=== PATIENT | female | born 1980 | race Caucasian/White ===

== ENCOUNTER 2020-05-13 17:38 | Emergency (ER) | payer OTHER, SELFPAY ==
--- NOTE | ~2020-05-13 | XR_ITS ---
XR ankle RT min 3V 05/13/2020 17:57 INDICATION: Right ankle pain after fall PROCEDURE: 4 views right ankle COMPARISON: No prior studies for comparison. FINDINGS: Fracture, dislocation or subluxation is not identified. Ankle mortise intact. The soft tiss ues appear within normal limits. No foreign bodies are identified. IMPRESSION: 1: NO ACUTE BONE OR JOINT ABNORMALITY IDENTIFIED. Reviewed, dictated and finalized at location A.
[2020-05-13 18:04] VITALS: BP 140/80; PULSE 100; RESP 12; TEMP 36.6; O2SAT 96
--- NOTE | 2020-05-13 18:21 | ED.GENADULT ---
HPI - General Adult General Chief complaint: Extremity Injury, Lower Stated complaint: R ANKLE PAIN S/P FALL Time Seen by Provider: 05/13/20 18:13 Source: patient Mode of arrival: ambulatory Limitations: no limitations History of Present Illness HPI narrative: Patient is a 40-year-old female who presents with right ankle injury that occurred after rolling the ankle just earlier today patient notes aching pain with difficulty bearing weight denies other injuries or complaints has not taken anything for her symptoms presents per private vehicle does not appear to be uncomfortable Related Data Allergies Allergy/AdvReac Type Severity Reaction Status Date / Time No Known Allergies Allergy Unknown Unverified 07/20/11 18:19 Review of Systems Review of Systems: All systems reviewed & are unremarkable except as noted in HPI and below PMFSH Past Medical History Medical History (Updated 05/13/20 @ 18:23 by Manuel Mauricio PA-C) Anxiety Depression Social History Social History Smoking status: Never smoker Second hand tobacco smoke exposure: No Alcohol intake: current Exam Narrative: Exam Narrative: GENERAL: Well-appearing, well-nourished, and in no acute distress. HEAD: Normocephalic, atraumatic. EYES: PERRLA and EOMI. ENT: Nares clear, no rhinorrhea or epistaxis. Mucous membranes moist. EXTREMITIES: Swelling and tenderness of the right ankle joint laterally SKIN: Warm, dry, no rash. NEURO: No focal deficits. Alert and oriented x3. Neurovascularly intact. Capillary refill less than 2 seconds PSYCH: Normal mood and affect. Course Course Emergency Course: Patient in the room aware of case findings treatment plan and diagnosis Vital Signs Vital signs: Vital Signs Temperature 97.8 F 05/13/20 18:04 Pulse Rate 100 05/13/20 18:04 Respiratory Rate 12 05/13/20 18:04 Blood Pressure 140/80 05/13/20 18:04 Pulse Oximetry 96 05/13/20 18:04 Temperature 97.8 F 05/13/20 18:04 Pulse Rate 100 05/13/20 18:04 Respiratory Rate 12 05/13/20 18:04 Blood Pressure 140/80 05/13/20 18:04 Pulse Oximetry 96 05/13/20 18:04 Medical Decision Making MDM Narrative Medical decision making narrative: Patients injury or pain is consistent with musculoskeletal etiology. No signs of neurological or vascular compromise on exam. Compartments and tisues are soft without signs of compartment syndrome. Pain is felt appropriate for further evaluation on an outpatient basis. Vital Signs Vital Signs: Vital Signs Temperature 97.8 F 05/13/20 18:04 Pulse Rate 100 05/13/20 18:04 Respiratory Rate 12 05/13/20 18:04 Blood Pressure 140/80 05/13/20 18:04 Pulse Oximetry 96 05/13/20 18:04 Temperature 97.8 F 05/13/20 18:04 Pulse Rate 100 05/13/20 18:04 Respiratory Rate 12 05/13/20 18:04 Blood Pressure 140/80 05/13/20 18:04 Pulse Oximetry 96 05/13/20 18:04 Discharge Plan Discharge Clinical Impression: Ankle sprain and strain Patient Disposition: Home, Self-Care Condition: Stable Instructions: Antibiotic Form, Ankle Strain (ED) Additional Instructions: Wear Didier wrap and use crutches with limited weight on the affected leg until able to bear weight without pain. Ice and elevate extremity. Pain medication as needed and directed. Follow up with your doctor for further care in the next 7 days. Return if symptoms worsen or concerns Follow-up/Referrals: Devi Collins MD [Primary Care Provider] - Stand Alone Forms: Work/School Release IP
== END 2020-05-13 18:49 | disposition home or self-care (01) ==
PROVIDERS: Emergency Provider Emergency Medicine; PCP Family Medicine
DX: S93.401A Sprain of unspecified ligament of right ankle, initial encounter (principal); S96.911A Strain of unspecified muscle and tendon at ankle and foot level, right foot, initial encounter; X50.1XXA Overexertion from prolonged static or awkward postures, initial encounter
CPT/HCPCS: 73610; 99283

== ENCOUNTER 2021-04-16 15:52 | Outpatient (CLI) | payer OTHER, SELFPAY ==
[2021-04-16 16:12] LABS: Hemoglobin 11.4 g/dL (12.0-15.0); Mean Corpuscular HGB Conc 32.6 g/dl (32-36); Mean Corpuscular Hemoglobin 29.5 pg (26-34); Mean Corpuscular Volume 90.7 fl (80-100); Mean Platelet Volume 11.4 fl (7.4-10.4); Platelet Count Result 217 k/mm3 (150-375); Red Blood Count 3.86 M/mm3 (4.2-5.4); Red Cell Distribution Width 12.2 % (11.5-14.5); White Blood Count 7.6 K/mm3 (4.5-10.0)
[2021-04-16 18:32] LABS: Free T4 Free Thyroxine 1.14 ng/mL (0.78-2.19)
[2021-04-16 19:03] LABS: Alanine Aminotransferase 12 U/L (4-35); Albumin Level 4.5 g/dL (3.5-5.1); Alkaline Phosphatase 54 U/L (38-126); Anion Gap 10 mmol/L (8-16); Aspartate Amino Transferase 16 U/L (14-36); Bilirubin,Total 0.3 mg/dL (0.2-1.3); Blood Urea Nitrogen 9 mg/dL (7-17); Calcium 9.1 mg/dL (8.4-10.2); Carbon Dioxide 27 mmol/L (22-30); Chloride 103 mmol/L (98-107); Estimated Glomerular Filt Rate > 60; Glucose 84 mg/dL (65-110); Potassium 3.6 mmol/L (3.4-5.0); Sodium 140 mmol/L (137-145)
[2021-04-20 16:31] LABS: Vitamin D 1,25 (OH)2 Total 35 pg/mL (18-72); Vitamin D2 1,25 (OH)2 <8 pg/mL; Vitamin D3 1,25 (OH)2 35 pg/mL
== END 2021-04-16 15:53 | disposition home or self-care (01) ==
PROVIDERS: PCP Family Medicine; Visit Provider Physician Assistant
DX: R53.83 Other fatigue (principal)
CPT/HCPCS: 36415; 80053; 82607; 82652; 84439; 84443; 85027

== ENCOUNTER → 2021-04-25 12:09 | Outpatient (CLI) | payer OTHER, SELFPAY ==
--- NOTE | ~2021-04-25 | MM_ITS ---
EXAMINATION: MM screening bill BI w john HISTORY: Screening TECHNIQUE: Craniocaudal and mediolateral oblique 3-D tomosynthesis images were obtained and synthetic 2-D images were generated. CAD analysis was submitted and interpreted. COMPARISON: No prior mammogram is available for comparison at this institution. BREAST PARENCHYMAL COMPOSITION: There are scattered areas of fibroglandular density. FINDINGS: There are bilateral breast asymmetries in the upper outer quadrant of both breasts. There a re no suspicious calcifications or discrete masses. IMPRESSION: 1. Bilateral breast asymmetries. 2. Additional mammographic views and possible breast ultrasound are recommended. BI-RADS Category 0: Incomplete: Needs additional imaging evaluation. Reviewed, dictated and finalized at location A. IMPRESSION: 1. Bilateral breast asymmetries. 2. Additional mammographic views and possible breast ultrasound are recommended . BI-RADS Category 0: Incomplete: Needs additional imaging evaluation.
== END ==
PROVIDERS: Visit Provider Obstetrics & Gynecology
DX: Z12.31 Encounter for screening mammogram for malignant neoplasm of breast (principal); R92.8 Other abnormal and inconclusive findings on diagnostic imaging of breast
CPT/HCPCS: 77063; 77067

== ENCOUNTER → 2021-05-29 07:44 | Outpatient (CLI) | payer OTHER, SELFPAY ==
--- NOTE | ~2021-05-29 | MMUS_ITS ---
EXAMINATION: MM diagnostic bill BI w john, US breast RT limited HISTORY: Bilateral breast asymmetries on baseline screening mammogram TECHNIQUE: Additional 3-D tomosynthesis images of the breasts were performed and synthetic 2-D images were generated. CAD analysis was submitted and interpreted. High resolution limited right breast ult rasound was performed. COMPARISON: 04/25/2021 BREAST PARENCHYMAL COMPOSITION: There are scattered areas of fibroglandular density. FINDINGS: MAMMOGRAPHIC FINDINGS: Left breast: There is no evidence of suspicious mass, calcification, or architectural distortion to suggest malignancy. Right breast: There is subtle architectural distortion with possible mass in the middle third of the outer breast at the 9:00 location 6 cm from the nipple. A 5 mm oval, circumscribed, equal density mas s is present at the 9:00 location 8 cm from the nipple. ULTRASOUND: There is a 7 mm x 4 mm oval, circumscribed, parallel, hypoechoic mass at the 9:00 location 6 cm from the nipple with no posterior features or internal vascularity. There is a 5 mm oval, circumscribed, p arallel, hypoechoic mass with posterior acoustic enhancement and no internal vascularity at the 8:00 location 8 cm from the nipple. A 6 mm x 2 mm mass with similar sonographic features is present at the 6:00 location 5 cm from the nipple. IMPRESSION: 1. Indeterminate right breast mass at the 9:00 location 6 cm from the nipple. 2. Ultrasound-guided biopsy is recommended. BI-RADS category 4, suspicious findings. Reviewed, dictated and finalized at location A. TOP SUPPORT SPECIALIST IMPRESSION: 1. Indeterminate right breast mass at the 9:00 location 6 cm from the nipple. 2. Ultrasound-guided biopsy is recommended. BI-RADS category 4, suspicious findings.
== END ==
PROVIDERS: Visit Provider Obstetrics & Gynecology
DX: R92.8 Other abnormal and inconclusive findings on diagnostic imaging of breast (principal)
CPT/HCPCS: 76642; 77062; 77066; G0279

== ENCOUNTER → 2021-06-05 07:43 | Outpatient (CLI) | payer OTHER, SELFPAY ==
--- NOTE | ~2021-06-05 | US_ITS ---
EXAMINATION: US abdomen limited DATE: 06/05/2021 08:13 INDICATION: Nausea. TECHNIQUE: Multiple grayscale and Doppler ultrasound images of the abdomen were obtained. COMPARISON: None FINDINGS: The visualized portions of the head, body, and tail of the pancreas are normal. The liver i s normal without focal lesion. There is normal flow in main portal vein. The gallbladder is normal in size and contains gallstones. No gallbladder wall thickening or sonographic Hale sign. The common duct is normal and measures 4 mm. IMPRESSION: 1. Cholelithiasis. No evidence of acute cholecystitis. Reviewed, dictated and finalized at location B. 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
== END ==
PROVIDERS: PCP Family Medicine; Visit Provider Family Medicine
DX: R11.0 Nausea (principal); K80.20 Calculus of gallbladder without cholecystitis without obstruction
CPT/HCPCS: 76705

== ENCOUNTER 2021-06-05 08:24 | Outpatient (CLI) | payer OTHER, SELFPAY ==
[2021-06-05 08:51] LABS: Hematocrit 40.4 % (37.0-47.0); Hemoglobin 13.4 g/dL (12.0-15.0); Mean Corpuscular HGB Conc 33.2 g/dl (32-36); Mean Corpuscular Hemoglobin 30.1 pg (26-34); Mean Corpuscular Volume 90.8 fl (80-100); Mean Platelet Volume 10.6 fl (7.4-10.4); Platelet Count Result 198 k/mm3 (150-375); Red Blood Count 4.45 M/mm3 (4.2-5.4); Red Cell Distribution Width 12.9 % (11.5-14.5); White Blood Count 7.8 K/mm3 (4.5-10.0)
[2021-06-05 10:43] LABS: Iron 62 ug/dL (37-170)
[2021-06-05 10:52] LABS: Percent Iron Saturation 18 % (20-50)
[2021-06-05 11:09] LABS: Alanine Aminotransferase 18 U/L (4-35); Albumin Level 4.6 g/dL (3.5-5.1); Alkaline Phosphatase 55 U/L (38-126); Anion Gap 10 mmol/L (8-16); Aspartate Amino Transferase 19 U/L (14-36); Bilirubin,Total 0.4 mg/dL (0.2-1.3); Blood Urea Nitrogen 15 mg/dL (7-17); Calcium 9.1 mg/dL (8.4-10.2); Carbon Dioxide 24 mmol/L (22-30); Chloride 102 mmol/L (98-107); Cholesterol 193 mg/dL (0-200); Estimated Glomerular Filt Rate > 60; Glucose 107 mg/dL (65-110); HDL Direct 40 mg/dL; Lipase 93 U/L (23-300); Potassium 4.4 mmol/L (3.4-5.0); Sodium 136 mmol/L (137-145); Triglycerides 213 mg/dL (<150)
[2021-06-05 11:21] LABS: LDL Cholesterol Direct 122 mg/dL
[2021-06-05 12:15] LABS: Folic Acid 6.6 ng/mL (2.76->20)
== END 2021-06-05 08:25 | disposition home or self-care (01) ==
PROVIDERS: PCP Family Medicine; Visit Provider Family Medicine
DX: D64.9 Anemia, unspecified (principal); R11.0 Nausea; E78.2 Mixed hyperlipidemia; R63.4 Abnormal weight loss; Z00.00 Encounter for general adult medical examination without abnormal findings
CPT/HCPCS: 36415; 80053; 80061; 82607; 82728; 82746; 83540; 83550; 83690; 84443; 85027

== ENCOUNTER 2021-06-11 08:50 | Outpatient (CLI) | payer OTHER, SELFPAY ==
--- NOTE | ~2021-06-11 | US_ITS ---
Consultation US DATE: 06/11/2021 09:39 INDICATION: The patient presented for ultrasound-guided biopsy of 9:00 indeterminate lesion 6 cm from nipple reported on 05/29/2021 right Limited breast ultrasound examination TECHNIQUE: Real-time imaging was performed by the technologist and by myself the radiologist in the a angie of interest at 9:00 COMPARISON: 05/29/2021 Limited right breast ultrasound examination FINDINGS: Previous reported 7 x 4 mm oval circumscribed parallel hypoechoic mass at 9:00 6 cm from th e nipple is no longer detected. IMPRESSION: BI-RADS Category 2: Benign Recommendation: Routine mammographic screening Reviewed, dictated and finalized at Location A. Reviewed, dictated and finalized at location A. LY SERVICE COUNSELOR
== END 2021-06-11 08:51 | disposition home or self-care (01) ==
LOC: ANHIMG 08:52
PROVIDERS: PCP Family Medicine; Visit Provider Surgery
DX: R92.8 Other abnormal and inconclusive findings on diagnostic imaging of breast (principal)
CPT/HCPCS: 99199

== ENCOUNTER → 2021-11-23 08:03 | Outpatient (CLI) | payer OTHER, SELFPAY ==
--- NOTE | ~2021-11-23 | MM_ITS ---
EXAMINATION: MM diagnostic bill RT w john HISTORY: Follow-up right breast mass TECHNIQUE: Additional 3-D tomosynthesis images of the right breast were performed and synthetic 2-D i mages were generated. CAD analysis was submitted and interpreted. High resolution Limited right breas t ultrasound was performed. COMPARISON: 05/29/2021 and 04/25/2021 BREAST PARENCHYMAL COMPOSITION: Breast composed of scattered areas of fibroglandular density FINDINGS: MAMMOGRAPHIC FINDINGS: There is subtle focal asymmetry in the lower outer quadrant of the right breast. No discrete mass. No suspicious calcifications. ULTRASOUND: Limited right breast ultrasound: At 9:00, 6 cm from the nipple there is a 4 mm cyst. At 8:00, 8 cm from the nipple, there is an irregular shaped antiparallel hypoechoic mass with irregul ar margins measuring 5 x 3 x 4 mm. No internal vascularity. No significant posterior features. At 6:0 0, 5 cm from the nipple there is a 5 mm cyst. IMPRESSION: 1. New right breast mass located at 8:00, 8 cm from the nipple with subtle associated focal asymmetry by mammography. 2. Ultrasound-guided right breast biopsy recommended. BI-RADS category 4, suspicious findings. Reviewed, dictated and finalized at location A. IMPRESSION: 1. New right breast mass located at 8:00, 8 cm from the nipple with subtle asso ciated focal asymmetry by mammography. 2. Ultrasound-guided right breast biopsy recommended. BI-RADS category 4, suspicious findings.
--- NOTE | ~2021-11-23 | US_ITS ---
Please see diagnostic mammogram report dated 11/23/2021 for details. Reviewed, dictated and finalized at location A.
== END ==
PROVIDERS: PCP Family Medicine; Referring Provider Surgery; Visit Provider Obstetrics & Gynecology Gynecology
DX: R92.8 Other abnormal and inconclusive findings on diagnostic imaging of breast (principal); N63.15 Unspecified lump in the right breast, overlapping quadrants
CPT/HCPCS: 76642; 77061; 77065; G0279

== ENCOUNTER 2021-12-19 09:12 | Outpatient (CLI) | payer OTHER, SELFPAY ==
--- NOTE | ~2021-12-19 | MMUS_ITS ---
EXAMINATION: US breast biopsy RT w image, MM post biopsy invasive RT DATE: 12/19/2021 11:37 (accession [id number]), 12/19/2021 11:34 (accession [id number]) INDICATION: Indeterminate mass in the lower outer quadrant of the right breast. Ultrasound-guided cor e biopsy is requested to evaluate for malignancy. TECHNIQUE AND FINDINGS: The risks and potential benefits of the procedure were discussed with the patient including bleeding, infection, and nondiagnostic specimen. A time out was performed. The skin of the right breast was pr epared and draped in usual sterile fashion. 1% lidocaine was used for superficial anesthesia. 1% lido valentina with epinephrine was used for deep anesthesia. A vacuum-assisted biopsy gun needle was advanced through to the outer edge of the region of interest from an inferior approach utilizing sonographic guidance. A total of three tissue core samples were o btained through the lesion. A tissue marker clip was then placed at the biopsy site. Hemostasis was a chieved. A sterile bandage was applied. The patient tolerated procedure well and there was no evidence of immediate complication. The patient was given verbal instructions to return to the Emergency Department in the event of severe breast pa in or rapid breast enlargement. A two view right breast mammogram was obtained to document tissue mar ker clip placement. Initial mammographic images did not demonstrate a biopsy marker. The patient was brought back to the biopsy suite and a second marker was placed at the biopsy site. IMPRESSION: 1. Successful ultrasound-guided vacuum-assisted biopsy of right breast mass with tissue marker placem ent. Reviewed, dictated and finalized at location A. IMPRESSION: 1. Successful ultrasound-guided vacuum-assisted biopsy of right breast mass wit h tissue marker placement.
== END 2021-12-19 09:13 | disposition home or self-care (01) ==
PROVIDERS: PCP Family Medicine; Visit Provider Surgery
DX: N63.13 Unspecified lump in the right breast, lower outer quadrant (principal)
CPT/HCPCS: 19083; 88305; A4648

== ENCOUNTER 2022-06-27 13:24 | Outpatient (CLI) | payer OTHER, SELFPAY ==
--- NOTE | ~2022-06-27 | MM_ITS ---
EXAMINATION: MM diagnostic bill BI w john HISTORY: Follow-up recent benign biopsy. TECHNIQUE: Additional 3-D tomosynthesis images of the right breast were performed and synthetic 2-D i mages were generated. CAD analysis was submitted and interpreted. COMPARISON: Comparison to multiple prior studies sequentially, with oldest reviewed study dated 04/13. BREAST PARENCHYMAL COMPOSITION: BREAST PARENCHYMAL COMPOSITION: There are scattered areas of fibroglandular density. FINDINGS: The right breast is stable. No new masses, calcifications or architectural distortion are i dentified. There is a tissue marker in the lower outer quadrant of the right breast. IMPRESSION: 1. No mammographic evidence for malignancy in the right breast. 2. Routine yearly screening mammogram and regular clinical breast examination are recommended. BI-RADS Category 2: Benign finding(s). Reviewed, dictated and finalized at location B. ECTOR PRECISION ASSEMBLY IMPRESSION: 1. No mammographic evidence for malignancy in the right breast. 2. Routine yearly screening mammogram and regular clinical breast examination a re recommended. BI-RADS Category 2: Benign finding(s).
== END 2022-06-27 13:25 | disposition home or self-care (01) ==
PROVIDERS: PCP Family Medicine; Visit Provider Surgery
DX: R92.8 Other abnormal and inconclusive findings on diagnostic imaging of breast (principal)
CPT/HCPCS: 77062; 77066; G0279

== ENCOUNTER 2023-05-02 07:27 | Outpatient (CLI) | payer OTHER, SELFPAY ==
[2023-05-02 08:22] LABS: Hematocrit 37.8 % (37.0-47.0); Hemoglobin 12.1 g/dL (12.0-15.0); Mean Corpuscular Volume 87.5 fl (80-100); Mean Platelet Volume 10.7 fl (7.4-10.4); Platelet Count Result 211 k/mm3 (150-375); Red Blood Count 4.32 M/mm3 (4.2-5.4); Red Cell Distribution Width 13.2 % (11.5-14.5); White Blood Count 6.1 K/mm3 (4.5-10.0)
[2023-05-02 08:34] LABS: Alanine Aminotransferase 21 U/L (6-35); Albumin Level 4.4 g/dL (3.5-5.1); Alkaline Phosphatase 67 U/L (38-126); Anion Gap 7 mmol/L (8-16); Aspartate Amino Transferase 19 U/L (14-36); Bilirubin,Total 0.5 mg/dL (0.2-1.3); Blood Urea Nitrogen 14 mg/dL (7-17); Calcium 8.4 mg/dL (8.4-10.2); Carbon Dioxide 24 mmol/L (22-30); Chloride 105 mmol/L (98-107); Cholesterol 169 mg/dL (0-200); Estimated Glomerular Filt Rate > 60; Glucose 95 mg/dL (65-110); HDL Direct 36 mg/dL; Potassium 4.2 mmol/L (3.4-5.0); Sodium 136 mmol/L (137-145); Triglycerides 122 mg/dL (<150)
[2023-05-02 08:45] LABS: LDL Cholesterol Direct 99 mg/dL
[2023-05-02 09:00] LABS: Free T4 Free Thyroxine 1.09 ng/mL (0.78-2.19); Vitamin D 25 Hydroxy 31.7 ng/mL
== END 2023-05-02 07:28 | disposition home or self-care (01) ==
LOC: ANHLAB 07:28
PROVIDERS: PCP Family Medicine; Visit Provider Advanced Practice Midwife
DX: Z01.419 Encounter for gynecological examination (general) (routine) without abnormal findings (principal); E66.09 Other obesity due to excess calories
CPT/HCPCS: 36415; 80053; 80061; 82306; 82607; 83036; 84439; 84443; 85027

== ENCOUNTER 2023-08-28 07:17 | Outpatient (CLI) | payer OTHER, SELFPAY ==
--- NOTE | ~2023-08-28 | MM_ITS ---
EXAMINATION: MM screening bill BI w john HISTORY: Screening mammogram TECHNIQUE: Craniocaudal and mediolateral oblique 3-D tomosynthesis images were obtained and synthetic 2-D images were generated. CAD analysis was submitted and interpreted. COMPARISON: 06/27/2022, 11/23/2021, 05/29/2021, 04/25/2021 BREAST PARENCHYMAL COMPOSITION: There are scattered areas of fibroglandular density. FINDINGS: No suspicious mass, calcification, or architectural distortion are identified in either daryl ast to suggest malignancy. There has been no suspicious interval change. IMPRESSION: 1. No mammographic evidence of malignancy. 2. Recommend routine screening mammography in one year. BI-RADS Category 1: Negative Reviewed, dictated and finalized at location A. UNICATIONS SYSTEMS ENGINEER
== END 2023-08-28 07:18 | disposition home or self-care (01) ==
PROVIDERS: PCP Family Medicine; Visit Provider Obstetrics & Gynecology Gynecology
DX: Z12.31 Encounter for screening mammogram for malignant neoplasm of breast (principal)
CPT/HCPCS: 77063; 77067

== ENCOUNTER 2023-09-03 17:44 | Emergency (ER) | payer OTHER, SELFPAY ==
[2023-09-03 17:56] VITALS: BP 134/89; PULSE 82; RESP 16; TEMP 37.1; O2SAT 97
--- NOTE | 2023-09-03 18:07 | ED.URI ---
HPI - URI/Sore Throat General Chief Complaint: Upper Respiratory Infection Stated Complaint: TIRED/COUGH/SORE THROAT/HEADACHE/FEVER/NAUSEA Time Seen by Provider: 09/03/23 18:07 Source: patient Mode of arrival: ambulatory Limitations: no limitations History of Present Illness HPI Narrative: 43-year-old female presents with complaint of sore throat, nasal congestion, cough, fatigue, body aches, chills, nausea and fever for 3 days. denies chest pain and shortness of breath. Taking ibuprofen to treat symptoms. Reports that she has missed 2 days of work, laying in bed all day. All systems reviewed and negative except as noted above. Related Data Home Medications Medication Instructions Recorded Confirmed buspirone 30 mg tablet 30 mg PO BID 05/14/21 09/03/23 clonazepam 1 mg tablet (Klonopin) 1 mg PO BID 05/14/21 09/03/23 bupropion HCl 300 mg 24 hr tablet, 450 mg PO QAM 07/05/21 09/03/23 extended release (Wellbutrin XL) cariprazine 1.5 mg capsule 1.5 mg PO DAILY 07/05/21 09/03/23 (Vraylar) Allergies Allergy/AdvReac Type Severity Reaction Status Date / Time No Known Allergies Allergy Unknown Verified 09/03/23 18:02 Review of Systems Review of Systems: CONSTITUTIONAL: Reports fever, chills, or sweats. EYES: Denies visual changes, redness, or discharge. ENT: Reports rhinorrhea, congestion, sore throat. Denies otalgia. CARDIOVASCULAR: Denies chest pain, palpitations, or edema. RESPIRATORY: Reports cough. Denies dyspnea. GASTROINTESTINAL: Denies abdominal pain, nausea, vomiting, or diarrhea. GENITOURINARY: Denies dysuria or hematuria. SKIN: Denies rash or itching. MUSCULOSKELETAL: Denies back pain, joint pain, or myalgia. NEUROLOGIC: Denies headache, numbness, or weakness. PSYCHIATRIC: Denies anxiety or depression. All other systems reviewed are negative, except as documented in HPI. [facility] Past Medical History Medical History Anxiety Bipolar disorder Depression Surgical History Surgical History Hx of tonsillectomy S/P D&C (status post dilation and curettage) Family History Family History (Updated 07/04/22 @ 12:44 by Maik Rodas MD) Father Diabetes mellitus Mother Hypertension Grandparent Diabetes mellitus Cerebrovascular accident Hypertension Carcinoma of colon Other , Unknown , Breast cancer unknown age of onset, in one great-grandmother. 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 There is no relevant family history pertinent to the presenting complaint. Exam Narrative: GENERAL: This is a well-nourished, well-developed patient, patient ill-appearing but in no acute distress HEAD: normocephalic, atraumatic. EYES: PERRL. Sclera clear/white. Vision is grossly intact. EARS: External ears normal, auditory canals clear and without drainage, TMs normal without perforation. Hearing grossly intact. NOSE: External nose normal with no obvious nasal discharge, nares without redness, no rhinorrhea. THROAT: Mucous membranes moist, mild erythema to posterior pharynx without swelling or exudates. NECK: Neck supple, non-tender without lymphadenopathy, masses or thyromegaly. CARDIOVASCULAR: Regular rate and rhythm without m
== END 2023-09-03 18:19 | disposition home or self-care (01) ==
PROVIDERS: Emergency Provider Nurse Practitioner Family; PCP Family Medicine
DX: J10.1 Influenza due to other identified influenza virus with other respiratory manifestations (principal); Z20.822 Contact with and (suspected) exposure to COVID-19; F17.210 Nicotine dependence, cigarettes, uncomplicated; F41.9 Anxiety disorder, unspecified; F32.A Depression, unspecified
CPT/HCPCS: 87081; 87426; 87804; 87880; 99213; G0463

== ENCOUNTER 2024-04-09 11:51 | Emergency (ER) | payer OTHER, SELFPAY ==
--- NOTE | ~2024-04-09 | CT_ITS ---
EXAMINATION: CT chest abdomen pelvis w con DATE: 04/09/2024 20:11 INDICATION: RUQ pain . TECHNIQUE: Computed tomography (CT) of the chest, abdomen, and pelvis was performed with 100 mL Omnip aque-350 intravenous contrast. Automated exposure control and iterative reconstruction technique were employed. The dose-length product was 1223.67 mGy-cm. COMPARISON: None FINDINGS: CHEST: Thoracic aorta: No significant dilation. No dissection. Lung parenchyma and airways: Lungs and airways are clear. Thoracic inlet, axillae and chest wall: No thyroid or soft tissue mass. No axillary lymphadenopathy. Mediastinum: No mass or lymphadenopathy. Heart and pericardium: Normal heart size. No pericardial effusion. Coronary artery calcifications: Absent. Pleura: No effusion or mass. Thoracic bones: No acute osseous finding in the chest. ABDOMEN/PELVIS: Liver: Normal. Biliary/Gallbladder: Distended gallbladder. Mild gallbladder wall thickening. Gallstone in the gallbl adder neck. No bile duct dilation. Pancreas: No mass or duct dilation. Spleen: Normal. Adrenals:No mass. Kidneys: No suspicious mass, obstructing stone, or hydronephrosis. Subcentimeter left midpole hypoden sity, too small to characterize but likely represents a cyst. GI tract: Mild distal esophageal and gastric wall edema. No small or large bowel dilation. Normal dasia endix. Mesentery/Peritoneum: No ascites, mass, or free air. Retroperitoneum: No mass Pelvis: Normal urinary bladder. Normal uterus and bilateral ovaries. Simple appearing 2.1 cm right ov madeleine cyst. Soft Tissues: Soft tissues and body wall unremarkable. Abdominopelvic bones: No acute osseous finding in the abdomen/pelvis. IMPRESSION: Mild esophagitis/gastritis. Gallbladder hydrops with gallbladder wall thickening and cholelithiasis, which may represent acute ch olecystitis in the appropriate clinical context. Reviewed, dictated and finalized at location K. IMPRESSION: Mild esophagitis/gastritis. Gallbladder hydrops with gallbladder wall thickening and cholelithiasis, which may represent acute cholecystitis in the appropriate clinical context.
[2024-04-09 12:25] VITALS: BP 159/97; PULSE 59; RESP 16; TEMP 36.6; O2SAT 98
--- NOTE | 2024-04-09 12:51 | ECG_ITS ---
Test Date: 2024-04-09 13:08:42 Measurements Intervals [place] Rate: 54 P: 76 CT: 163 QRS: 10 QRSD: 89 T: 46 QT: 401 QTc: 381 Interpretive Statements SINUS BRADYCARDIA DELAYED PRECORDIAL R/S TRANSITION BORDERLINE ST-T WAVE ABNORMALITY- ANT/INF LEADS BASELINE ARTIFACT- I, II, AVR, AVL, AVF BORDERLINE ECG No previous ECG available for comparison Electronically Signed On 04-09-2024 13:29:16 CDT by Romero Riley D.O.
--- NOTE | 2024-04-09 18:06 | ED.ABDPAIN ---
HPI - Abdominal Pain General Chief Complaint: Abdominal Pain <Liliane Barnard APRN - Last Filed: 04/09/24 18:12> Stated Complaint: abd pain <Lilianemitzy Barnard APRN - Last Filed: 04/09/24 18:12> Time Seen by Provider: 04/09/24 17:50 <Liliane Barnard APRN - Last Filed: 04/09/24 18:12> Focused HPI: Patient is a 43-year-old female who presents to the ER with complaints right upper quadrant abdominal pain that started 2 weeks ago. She reports she has a history of bipolar disorder, anxiety, and GERD. Patient reports she has been experiencing anorexia since her pain started, as this causes pain to increase. She denies any history of cholecystitis but reports that most of her family no longer has a gallbladder. Patient was also endorses right upper back pain. She denies any shortness of breath, other signs of illness, or mid-chest pain. Patient reports her last bowel movement was this morning. GENERAL: Well-appearing, well-nourished, and in no acute distress. HEAD: Normocephalic, atraumatic. CHEST: Clear to auscultation. ?No respiratory distress. HEART: Bradycardia (pt takes Propranolol for anxiety) and regular rhythm.? ABDOMEN: Pt is very tender in her RUQ with palpation. Normal BS NEURO: ?Alert and oriented x3. Patient screened in triage and initial orders placed.? ?Additional care and disposition to be based upon?diagnostic testing and treatment. <Liliane Barnard APRN - Last Filed: 04/09/24 18:12> History of Present Illness HPI narrative: Agree with the HPI <Grant Finnegan MD - Last Filed: 04/09/24 21:15> Related Data Home Medications: Home Medications Medication Instructions Recorded Confirmed buspirone 30 mg tablet 30 mg PO BID 05/14/21 09/17/23 clonazepam 1 mg tablet (Klonopin) 1 mg PO BID 05/14/21 09/17/23 bupropion HCl 300 mg 24 hr tablet, 450 mg PO QAM 07/05/21 09/17/23 extended release (Wellbutrin XL) cariprazine 1.5 mg capsule 1.5 mg PO DAILY 07/05/21 09/17/23 (Vraylar) <Liliane Barnard APRN - Last Filed: 04/09/24 18:12> Allergies/Adverse Reactions: Allergies Allergy/AdvReac Type Severity Reaction Status Date / Time No Known Allergies Allergy Unknown Verified 09/17/23 14:58 <Liliane Barnard APRN - Last Filed: 04/09/24 18:12> Review of Systems Review of Systems: All systems reviewed & are unremarkable except as noted in HPI and below <Grant Finnegan MD - Last Filed: 04/09/24 21:15> [facility] Past Medical History Medical History: Medical History Anxiety Bipolar disorder Depression <Liliane Barnard APRN - Last Filed: 04/09/24 18:12> Surgical History Surgical History: Surgical History Hx of tonsillectomy S/P D&C (status post dilation and curettage) <Liliane Barnard APRN - Last Filed: 04/09/24 18:12> Family History Family History: Family History Father Diabetes mellitus Mother Hypertension Grandparent Diabetes mellitus Cerebrovascular accident Hypertension Carcinoma of colon Other , Unknown , Breast cancer unknown age of onset, in one great-grandmother. 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
[2024-04-09 18:11] LABS: Add Urine Microscopic? YES; Appearance Urine Clear (Clear); Bacteria Urine 1+ /hpf; Bilirubin Urine Negative (Negative); Blood Urine Negative (Negative); Color Urine Yellow (Yellow); Glucose Urine UA Negative (Negative); Ketones Urine Negative (Negative); Leukocyte Esterase Ur Trace LEU/UL (Negative); Nitrate Urine Negative (Negative); Non Pathogenic Casts 0-2; Protein Urine Negative (Negative); RBC Urine 0-2 /hpf (0-2); Specific Grav Ur 1.012 (1.001-1.035); Squamous Epithelial Cell Urine Few /hpf (Few); WBC Urine 0-5 /hpf (0-3); pH Urine 6.5 (5.0-9.0)
[2024-04-09] MEDS: SODIUM CHLORIDE 0.9% IV 1,000 ML 999 ML IV CONT (18:59)
[2024-04-09] MEDS: HYDROcodone/acetaminophen (*CRX) 5-325 MG TABLET 1 TAB PO (18:59)
[2024-04-09] MEDS: FAMOTIDINE 20 MG/2 ML VIAL IV PUSH (19:02)
[2024-04-09 19:10] VITALS: BP 152/91; PULSE 60; RESP 14; TEMP 36.9; O2SAT 100
[2024-04-09] MEDS: PANTOPRAZOLE SODIUM IV 40 MG VIAL IV PUSH (19:14)
[2024-04-09 19:15] LABS: Basophils Absolute Auto 0.1 K/mm3 (0.0-0.1); Basophils Percent Auto 0.7 % (0.2-1.2); Eosinophils Absolute Auto 0.3 K/mm3 (0-0.3); Eosinophils Percent Auto 3.7 % (0-4.4); Hematocrit 37.6 % (37.0-47.0); Hemoglobin 12.1 g/dL (12.0-15.0); Immature Granulocyte Absolute 0.05 K/mm3 (0.00-0.031); Immature Granulocyte Percent A 0.6 % (0-0.5); Lymphocytes Absolute Auto 1.92 K/mm3 (0.9-3.2); Mean Corpuscular HGB Conc 32.2 g/dl (32-36); Mean Corpuscular Hemoglobin 26.7 pg (26-34); Monocytes Absolute Auto 0.7 K/mm3 (0.1-0.6); Monocytes Percent Auto 8.1 % (2.6-8.5); Neutrophils Absolute Auto 5.7 K/mm3 (1.3-6.7); Neutrophils Percent Auto 64.9 % (45.5-73.1); Platelet Count Result 250 k/mm3 (150-375); Red Blood Count 4.53 M/mm3 (4.2-5.4); Red Cell Distribution Width 14.1 % (11.5-14.5); White Blood Count 8.7 K/mm3 (4.5-10.0)
[2024-04-09 19:26] LABS: Prothrombin Time 13.2 Seconds (11.1-14.7)
[2024-04-09 19:27] LABS: Partial Thromboplastin Time 26.9 Seconds (22.3-36.8)
[2024-04-09 19:33] LABS: Lactic Acid Reflex 0.8 mmol/L (0.7-2.0)
[2024-04-09 19:39] LABS: Pregnancy On Board Control Positive; Urine Pregnancy Test Negative
[2024-04-09 19:39] LABS: Alanine Aminotransferase 18 U/L (6-35); Albumin Level 4.4 g/dL (3.5-5.1); Alkaline Phosphatase 58 U/L (38-126); Anion Gap 8 mmol/L (4-12); Aspartate Amino Transferase 17 U/L (14-36); Bilirubin,Total 0.3 mg/dL (0.2-1.3); Blood Urea Nitrogen 8 mg/dL (7-17); Calcium 8.8 mg/dL (8.4-10.2); Carbon Dioxide 27 mmol/L (22-30); Chloride 101 mmol/L (98-107); Estimated CRCL calculation 99 ml/min; Estimated Glomerular Filt Rate > 60; Glucose 97 mg/dL (65-110); Lipase 93 U/L (23-300); Potassium 3.6 mmol/L (3.4-5.0); Sodium 136 mmol/L (137-145)
[2024-04-09] MEDS: ONDANSETRON INJ 4 MG/2 ML VIAL IV PUSH (19:44)
[2024-04-09 19:45] LABS: Troponin I < 0.012 ng/mL (0.000-0.034)
[2024-04-09] MEDS: HYDROmorphone HCL INJ (*CRX) 1 MG/ML SYR 0.5 MG IV PUSH (19:45)
[2024-04-09] MEDS: AMOXICILLIN/CLAVULANATE K 875-125 MG TAB 1 TABLET PO (21:22)
[2024-04-09] MEDS: HYDROcodone/acetaminophen (*CRX) 10-325 MG TABLET 1 TAB PO (21:26)
[2024-04-09 21:29] VITALS: BP 136/79; PULSE 87; RESP 18; O2SAT 98
[2024-04-12 14:24] LABS: BEDSIDEPREGUCG Negative (Negative)
== END 2024-04-09 21:32 | disposition home or self-care (01) ==
PROVIDERS: Preventive Medicine Aerospace Medicine; Registered Nurse; Emergency Provider Emergency Medicine; PCP Family Medicine
DX: K80.70 Calculus of gallbladder and bile duct without cholecystitis without obstruction (principal); K21.9 Gastro-esophageal reflux disease without esophagitis; F31.9 Bipolar disorder, unspecified; F41.9 Anxiety disorder, unspecified; F17.210 Nicotine dependence, cigarettes, uncomplicated; R00.1 Bradycardia, unspecified; K20.90 Esophagitis, unspecified without bleeding; K29.70 Gastritis, unspecified, without bleeding; Z79.899 Other long term (current) drug therapy
CPT/HCPCS: 36415; 71260; 74177; 80053; 81001; 81025; 83605; 83690; 84484; 85025; 85610; 85730; 93005; 96361; 96374; 96375; 99284; A9270; J1170; J1171; J2405; J2470; J7030; Q9967

== ENCOUNTER 2024-04-12 00:29 | Inpatient (IN) | payer OTHER, SELFPAY ==
[2024-04-12] VITALS (10 sets, daily range): BP systolic 128–161; BP diastolic 70–95; PULSE 54–75; RESP 15–20; TEMP 35.6–36.5; O2SAT 98–100; BMI 34.7
--- NOTE | ~2024-04-12 | CT_ITS ---
CT of the Abdomen and Pelvis: Indication: Worsening pain Technique: 2.5 mm axial scans were obtained through the abdomen and pelvis following intravenous adm inistration of 100 cc of Omnipaque 350. Dose reduction technique was used on this scan by utilizing a utomated exposure control and iterative reconstruction technique. The dose-length product (DLP) was 1 109.42 mGy-cm. COMPARISON: 04/09/2024 Findings: Scans through the lung bases are unremarkable. The liver, spleen, pancreas, adrenals and right kidney are within normal limits. Gallbladder is diste nded, with stone in the gallbladder neck, and associated gallbladder wall thickening. Stable 9 mm ind eterminate left renal mass (axial image 79). No evidence of aortic aneurysm. No lymphadenopathy. No bowel obstruction or bowel wall thickening. There is no evidence to suggest acute appendicitis. Images through the pelvis were performed. Urinary bladder unremarkable. No pelvic mass evident. No as cites. Impression: Findings compatible with acute cholecystitis and associated cholelithiasis. Appearance is similar to prior exam. Indeterminate 9 mm left renal mass. Follow-up pre and postcontrast MR advised to assess for solid enh ancing lesion. Reviewed, dictated and finalized at location . Impression: Findings compatible with acute cholecystitis and associated cholelithiasis. Teresa earance is similar to prior exam. Indeterminate 9 mm left renal mass. Follow-up pre and postcontrast MR advised t o assess for solid enhancing lesion.
[2024-04-12 00:50] LABS: Basophils Percent Auto 0.5 % (0.2-1.2); Eosinophils Absolute Auto 0.3 K/mm3 (0-0.3); Eosinophils Percent Auto 3.3 % (0-4.4); Hematocrit 35.7 % (37.0-47.0); Hemoglobin 11.4 g/dL (12.0-15.0); Immature Granulocyte Absolute 0.04 K/mm3 (0.00-0.031); Immature Granulocyte Percent A 0.5 % (0-0.5); Lymphocytes Absolute Auto 1.55 K/mm3 (0.9-3.2); Lymphocytes Percent Auto 19.9 % (18.3-44.2); Mean Corpuscular HGB Conc 31.9 g/dl (32-36); Mean Corpuscular Hemoglobin 26.7 pg (26-34); Mean Corpuscular Volume 83.6 fl (80-100); Mean Platelet Volume 10.7 fl (7.4-10.4); Monocytes Absolute Auto 0.6 K/mm3 (0.1-0.6); Monocytes Percent Auto 7.1 % (2.6-8.5); Neutrophils Absolute Auto 5.3 K/mm3 (1.3-6.7); Neutrophils Percent Auto 68.7 % (45.5-73.1); Platelet Count Result 230 k/mm3 (150-375); Red Blood Count 4.27 M/mm3 (4.2-5.4); Red Cell Distribution Width 14.1 % (11.5-14.5); White Blood Count 7.8 K/mm3 (4.5-10.0)
[2024-04-12 01:04] LABS: Alanine Aminotransferase 16 U/L (6-35); Albumin Level 4.1 g/dL (3.5-5.1); Alkaline Phosphatase 64 U/L (38-126); Anion Gap 9 mmol/L (4-12); Aspartate Amino Transferase 16 U/L (14-36); Bilirubin,Total 0.3 mg/dL (0.2-1.3); Blood Urea Nitrogen 8 mg/dL (7-17); Calcium 8.7 mg/dL (8.4-10.2); Carbon Dioxide 24 mmol/L (22-30); Chloride 104 mmol/L (98-107); Estimated CRCL calculation 99 ml/min; Estimated Glomerular Filt Rate > 60; Glucose 126 mg/dL (65-110); Lipase 86 U/L (23-300); Potassium 3.7 mmol/L (3.4-5.0); Sodium 137 mmol/L (137-145)
[2024-04-12 02:43] LABS: Add Urine Microscopic? YES; Appearance Urine Clear (Clear); Bacteria Urine None Seen /hpf; Bilirubin Urine Negative (Negative); Blood Urine Negative (Negative); Color Urine Yellow (Yellow); Glucose Urine UA Negative (Negative); Ketones Urine Negative (Negative); Leukocyte Esterase Ur Trace LEU/UL (Negative); Need Manual Microscopic Reviewed; Nitrate Urine Negative (Negative); Non Pathogenic Casts 0-2; Protein Urine Negative (Negative); RBC Urine 0-2 /hpf (0-2); Specific Grav Ur 1.016 (1.001-1.035); Squamous Epithelial Cell Urine Moderate /hpf (Few); WBC Urine 0-5 /hpf (0-3)
--- NOTE | 2024-04-12 03:04 | ED.ABDPAIN ---
HPI - Abdominal Pain General Chief Complaint: Abdominal Pain Stated Complaint: known gallstones can't manage the pain Time Seen by Provider: 04/12/24 02:31 History of Present Illness HPI narrative: 43-year-old female presenting for re-evaluation of worsening right upper quadrant pain. Patient was recently diagnosed with biliary colic with concerns for acute cholecystitis on her visit to this emergency department 3 days prior. She was discharged after pain control and placed on oral antibiotics including Augmentin with outpatient general surgery follow-up. She has not been able to make this appointment and states that she is having worsening pain in the right upper quadrant and no improvement with the antibiotics or the p.o. [place] at home. Denies any fevers, chills, nauseousness, vomiting, chest pain shortness a breath. States that the pain comes and goes in waves it has been worsening. Related Data Home Medications Medication Instructions Recorded Confirmed buspirone 30 mg tablet 30 mg PO DAILY 05/14/21 04/12/24 clonazepam 1 mg tablet (Klonopin) 0.5 mg PO BID 05/14/21 04/12/24 cariprazine 3 mg capsule (Vraylar) 3 mg PO HS 04/12/24 04/12/24 propranolol 10 mg tablet 10 mg PO BID 04/12/24 04/12/24 Allergies Allergy/AdvReac Type Severity Reaction Status Date / Time No Known Allergies Allergy Unknown Verified 04/12/24 00:30 Review of Systems Review of Systems: As reviewed above in HPI [facility] Past Medical History Medical History Anxiety Bipolar disorder Depression Surgical History Surgical History Hx of tonsillectomy S/P D&C (status post dilation and curettage) Family History Family History Father Diabetes mellitus Mother Hypertension Grandparent Diabetes mellitus Cerebrovascular accident Hypertension Carcinoma of colon Other , Unknown , Breast cancer unknown age of onset, in one great-grandmother. 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 Mucous membranes moist. NECK: Supple. CHEST: [Clear to auscultation. No respiratory distress.] HEART: [Regular rate and rhythm]. No murmur heard. [Normal peripheral pulses.] ABDOMEN: [Soft, nondistended], tenderness to palpation the right upper quadrant, positive Hale sign, [No rigidity or guarding] EXTREMITIES: Normal range of motion. [No edema.] SKIN: Warm, dry, no rash. NEURO: [No focal deficits]. Alert and oriented [x3.] PSYCH: [Normal mood and affect.] Course Vital Signs Vital signs: Vital Signs Temperature 36.5 C 04/12/24 00:39 Pulse Rate 75 04/12/24 00:39 Respiratory Rate 15 04/12/24 00:39 Blood Pressure 155/94 H 04/12/24 00:39 Pulse Oximetry 100 04/12/24 00:39 Oxygen Delivery Room Air 04/12/24 00:39 Temperature 36.5 C 04/12/24 00:39 Pulse Rate 61 04/12/24 02:31 Respiratory Rate 17 04/12/24 02:31 Blood Pressure 148/88 H 04/12/24 02:31 Pulse Oximetry 100 04/12/24 02:31 Oxygen Delivery Room Air 04/12/24 00:39 MDM - Abdominal Pain MDM Narrative Medical de
[2024-04-12] MEDS: HYDROmorphone HCL INJ (*CRX) 1 MG/ML SYR IV PUSH ×2 (03:07→12:47)
[2024-04-12] MEDS: LACTATED RINGERS 1,000 ML 999 ML IV CONT (03:08)
--- NOTE | 2024-04-12 03:16 | PC.NURSE ---
Patient taken to CT via stretcher at this time.
--- NOTE | 2024-04-12 05:03 | ADMGEN ---
This patient, Bonnie Gay, was admitted to Medical Room 251-01. Patient/family oriented to hospital policies and general routines including ID bracelet, bed and alarms, visiting hours, pain management, procedures, bathroom and other care routines, personal items, smoking policy, room service/diet, and visiting hours. Information on how to activate the Rapid Response Team has been discussed. Patient/Family are encouraged to report perceived risks to care and to ask questions if they do not understand what they are told or what they should do.
[2024-04-12] MEDS: PIPERACILLIN/TAZ 4.5G/NS 100ML 4.5 GM/100 ML BAG IVPB (05:04)
[2024-04-12] MEDS: LACTATED RINGERS 1,000 ML 125 ML IV CONT (05:13)
[2024-04-12] MEDS: HYDROmorphone HCL INJ (*CRX) 1 MG/ML SYR 0.5 MG IV PUSH ×3 (09:47→21:59)
[2024-04-12] MEDS: PIPERACILLN/TAZ 3.375GM/NS50ML 3.375 GM/50 ML BAG IVPB ×2 (10:22→17:09)
--- NOTE | 2024-04-12 11:02 | PM.IMHP ---
H&P: HPI History of Present Illness Date/Time: 04/12/24 11:02 Chief Complaint: RUQ abdominal pain Narrative: This is a 43-year-old woman with PMH of anxiety and bipolar disorder, who presented to the ED twice in the past few days. She reports having RUQ abdominal pain for the past 2 weeks. Her pain was aggravated by eating and was progressive. She eventually presented to the ED on 04/09/24 due to the pain. Workup showed CT evidence of cholelithiasis with gallbladder wall thickening and hydrops. CT also showed mild esophagitis/gastritis. Labs were unremarkable with normal WBC count and normal LFTs. Her abdominal pain improved in the ED and she was discharged home with Augmentin and hydrocodone. She was instructed to f/u with general surgery as an outpatient. She reports her abdominal pain started to get worse as soon as she got to her car in the parking lot of the ER, but was already discharged so she tried to go home. The hydrocodone was not helping with her pain, which remained constant. Her pain continued to get worse over the weekend and would come and go in waves. Due to her persistent abdominal pain, she presented back to the ED last night. Repeat labs were essentially unchanged. Repeat CT scan of the abdomen and pelvis again showed a gallstone in the neck of the gallbladder with gallbladder wall thickening and distention, consistent with acute cholecystitis. She was admitted in this setting for surgical evaluation, and is now seen on the medical floor. She was put on a low fat diet this morning and her abdominal pain has gotten worse again after eating. She denies any nausea or vomiting. Bowels have been moving normally. Denies any previous abdominal surgery. No other complaints at this time. Review of Systems Review of Systems: All systems reviewed & are unremarkable except as noted in HPI and below PMFSH Past Medical History Medical History (Updated 04/12/24 @ 11:36 by WILFRID Garcia) Anxiety Bipolar disorder Depression Surgical History Surgical History Hx of tonsillectomy S/P D&C (status post dilation and curettage) Family History Family History Father Diabetes mellitus Mother Hypertension Grandparent Diabetes mellitus Cerebrovascular accident Hypertension Carcinoma of colon Other , Unknown , Breast cancer unknown age of onset, in one great-grandmother. Social History Social History Social History: caffeine use: soda/coffee daily Smoking packs per day: 0.25 Smoking cigarettes per day: 5.0 Years smoked: 20 Smoking pack-years: 5.00 Smoking status: Former smoker Tobacco type: cigarettes Second hand tobacco smoke exposure: No Alcohol intake: current Drinks per week: 1 Alcohol use details: social-vodka Substance use: current Substance use type: marijuana Last use: 04/11/24 Do You Feel Safe in your Home?: Yes Lack of Transportation: No Lack of Food: Never True Current Housing: I Have Housing Concerned About Future Housing: No Difficulty Paying Gas/Electric Bills: No Difficulty Paying for Meds: No Currently Unemployed: No Education: Master's Degree or Higher Difficulty w/ Childcare or Family Care: No Living arrangements: with family Occupation/Education: occupation 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
[2024-04-12] MEDS: clonazePAM (*CRX) 0.5 MG TABLET PO ×2 (11:59→21:58)
[2024-04-12] MEDS: ACETAMINOPHEN 500 MG TABLET 1000 MG PO (12:00)
[2024-04-12] MEDS: busPIRone HCL 10 MG TABLET 30 MG PO (12:01)
[2024-04-12] MEDS: PROPRANOLOL HCL 10 MG TABLET PO ×2 (12:01→21:58)
[2024-04-12 14:30] LABS: BEDSIDEPREGUCG Negative (Negative)
[2024-04-12] MEDS: LACTATED RINGERS 1,000 ML 80 ML IV CONT (17:03)
[2024-04-13] VITALS (16 sets, daily range): BP systolic 120–152; BP diastolic 63–96; PULSE 63–89; RESP 12–20; TEMP 35.9–37.4; O2SAT 96–100
[2024-04-13] MEDS: PIPERACILLN/TAZ 3.375GM/NS50ML 3.375 GM/50 ML BAG IVPB ×4 (00:07→17:06)
[2024-04-13] MEDS: LACTATED RINGERS 1,000 ML 80 ML IV CONT ×2 (05:20→12:03)
[2024-04-13] MEDS: HYDROmorphone HCL INJ (*CRX) 1 MG/ML SYR 0.5 MG IV PUSH (05:26)
[2024-04-13 06:29] LABS: Hematocrit 35.3 % (37.0-47.0); Hemoglobin 11.3 g/dL (12.0-15.0); Mean Corpuscular Hemoglobin 26.9 pg (26-34); Mean Platelet Volume 11.1 fl (7.4-10.4); Platelet Count Result 222 k/mm3 (150-375); Red Cell Distribution Width 14.1 % (11.5-14.5); White Blood Count 6.2 K/mm3 (4.5-10.0)
[2024-04-13 06:38] LABS: Alanine Aminotransferase 14 U/L (6-35); Albumin Level 4.3 g/dL (3.5-5.1); Alkaline Phosphatase 51 U/L (38-126); Anion Gap 7 mmol/L (4-12); Aspartate Amino Transferase 16 U/L (14-36); Bilirubin,Total 0.5 mg/dL (0.2-1.3); Blood Urea Nitrogen 4 mg/dL (7-17); Calcium 8.8 mg/dL (8.4-10.2); Carbon Dioxide 28 mmol/L (22-30); Chloride 101 mmol/L (98-107); Estimated CRCL calculation 99 ml/min; Estimated Glomerular Filt Rate > 60; Glucose 106 mg/dL (65-110); Lipase 46 U/L (23-300); Sodium 136 mmol/L (137-145)
[2024-04-13] MEDS: PROPRANOLOL HCL 10 MG TABLET PO ×2 (06:39→20:32)
[2024-04-13] MEDS: ACETAMINOPHEN 500 MG TABLET 1000 MG PO (07:57)
--- NOTE | 2024-04-13 07:57 | WPDANESEPPF ---
Anes - Initial Pre Proc Eval Procedure: Operation Date: 04/13/24 08:30 Proposed Procedures p Laparoscopic Cholecystectomy - Esequiel Ragsdale MD Date/Time: 04/13/24 07:57 Surgeon: Esequiel Ragsdale MD Pre Op Diagnosis: Acute cholecystitis Patient Data Age: 43 Gender: F Height: 1.63 m Weight: 91.9 kg Last Vital Signs Temp 36.3 C L 04/13/24 05:25 Pulse 63 04/13/24 06:39 Resp 20 04/13/24 05:25 BP 152/79 H 04/13/24 05:25 Pulse Ox 99 04/13/24 05:25 O2 Del Method Room Air 04/12/24 21:52 Allergies Allergy/AdvReac Type Severity Reaction Status Date / Time No Known Allergies Allergy Unknown Verified 04/13/24 07:59 Home Medications Medication Instructions Recorded Confirmed Type buspirone 30 mg tablet 30 mg PO DAILY 05/14/21 04/13/24 History clonazepam 1 mg tablet (Klonopin) 0.5 mg PO BID 05/14/21 04/13/24 History amoxicillin 875 mg-potassium 1 tablet PO BID 04/12/24 04/13/24 History clavulanate 125 mg tablet cariprazine 3 mg capsule (Vraylar) 3 mg PO HS 04/12/24 04/13/24 History hydrocodone 5 mg-acetaminophen 325 1 tablet PO Q12H PRN Pain 04/12/24 04/13/24 History mg tablet propranolol 10 mg tablet 10 mg PO BID 04/12/24 04/13/24 History Laboratory Tests 04/12/24 04/13/24 04/13/24 02:31 05:59 06:00 WBC 6.2 K/mm3 (4.5-10.0) RBC 4.20 M/mm3 (4.2-5.4) Hgb 11.3 L g/dL (12.0-15.0) Hct 35.3 L % (37.0-47.0) MCV 84.0 fl (80-100) MCH 26.9 pg (26-34) MCHC 32.0 g/dl (32-36) RDW 14.1 % (11.5-14.5) Plt Count 222 k/mm3 (150-375) MPV 11.1 H fl (7.4-10.4) Sodium 136 L mmol/L (137-145) Potassium 4.0 mmol/L (3.4-5.0) Chloride 101 mmol/L (98-107) Carbon Dioxide 28 mmol/L (22-30) Anion Gap 7 mmol/L (4-12) BUN 4 L mg/dL (7-17) Creatinine 0.70 mg/dL (0.7-1.0) Estim Creat Clear Calc 99 ml/min Estimated GFR > 60 (59 - ) Glucose 106 mg/dL (65-110) Calcium 8.8 mg/dL (8.4-10.2) Total Bilirubin 0.5 mg/dL (0.2-1.3) AST 16 U/L (14-36) ALT 14 U/L (6-35) Alkaline Phosphatase 51 U/L (38-126) Total Protein 7.0 g/dL (6.3-8.2) Albumin 4.3 g/dL (3.5-5.1) Lipase 46 U/L (23-300) POC Urine HCG, Qual Negative (Negative) Patient hx anesthesia problems: none Family hx anesthesia problems: none Results Review: All pre-operative results and documents have been reviewed as part of the pre-operative evaluation. [facility] Past Medical History Medical History (Updated 04/12/24 @ 11:36 by WILFRID Garcia) Anxiety Bipolar disorder Depression Surgical History Surgical History Hx of tonsillectomy S/P D&C (status post dilation and curettage) Family History Family History Father Diabetes mellitus Mother Hypertension Grandparent Diabetes mellitus Cerebrovascular accident Hypertension Carcinoma of colon Other , Unknown , Breast cancer unknown age of onset, in one great-grandmother. Social History Social History Social History: caffeine use: soda/coffee daily Smoking packs per day: 0.25 Smoking cigarettes per day: 5.0 Years smoked: 20 Smoking pack-years: 5.00 Smoking status: Former smoker Tobacco type: cigarettes Second hand tobacco smoke exposure: No Alcohol intake: current Drinks per week: 1 Alcohol use details: social-vodka Substance use: current Substance use type: marijuana Last use: 04/11/24 Do You Feel Safe in your Home?: Yes Lack of Transportation: No Lack of Food: Never True Current Housing: I Have Housing Concern
[2024-04-13] MEDS: KETOROLAC 15 MG/ML VIAL (*BKC) IV PUSH (07:58)
--- NOTE | 2024-04-13 08:19 | WPDHPUPDATE1 ---
History and Physical Update Update Date/Time: 04/13/24 08:19 History and Physical has been reviewed, including an updated exam of the patient. There are NO changes in the patient's condition. Risks, benefits, and alternatives have been discussed and questions answered. Patient agrees to proceed with procedure.
[2024-04-13] MEDS: BUPIVACAINE/EPINEPHRINE 0.5% 50 ML VIAL 30 ML INFILTRATE (09:04)
[2024-04-13] MEDS: LACTATED RINGERS 1,000 ML 30 ML IV CONT ×2 (10:24→10:43)
--- NOTE | 2024-04-13 10:27 | SUR.PREOP ---
PT AND SPOUSE UPDATED RE: SURGICAL DELAY
--- NOTE | 2024-04-13 10:37 | W.PM.PROC2 ---
Procedure Note - Detailed Date of Procedure 04/13/24 Pre-op Diagnosis Acute cholecystitis, cholelithiasis Post-op Diagnosis Other (Acute on chronic cholecystitis, cholelithiasis) Procedure Performed Laparoscopic cholecystectomy Surgeon Esequiel Ragsdale MD Drop Clipper [facility] CULP Anesthesia General and Local Indications Patient has had episodes of right upper quadrant abdominal pain and imaging has shown gallstones particularly a large stone in the neck of the gallbladder. She was admitted Friday night and has been feeling better in the hospital but is now taken to surgery for laparoscopic cholecystectomy. Findings Severe cholecystitis with both chronic changes of fibrosis and dense adhesions along with acute inflammation with hypervascularity and edema. There was a very large stone in the neck of the gallbladder as wall as other large stones in the gallbladder. There was more bleeding than usual mostly due to the gallbladder dissection which tended to bleed even with the use of hook cautery. No other significant findings. Liver appeared normal. Biliary ducts were not dilated. Description of Procedure Patient was taken to surgery and induced into general anesthesia. The abdomen is prepped and draped. Trocars were placed in the usual fashion using iPosi optical trocars and a 5 mm camera. A varies needle was used prior to placement of the 1st trocar. With the trocars in place, insufflation was carried out. The gallbladder was obviously be tensely distended and edematous. The upper half of the gallbladder was intrahepatic and there were several adhesions to the wall of the gallbladder opposite the liver. A laparoscopic aspirator was used and gallbladder was at least partially decompressed. There was cloudy bile within the gallbladder. Gallbladder wall was so thick that closure of the cholecystotomy was really not feasible. The gallbladder was then retracted anterosuperiorly. Careful dissection was carried out to free the numerous adhesions to the wall of the gallbladder and from the undersurface of the liver. By and large this was fairly bloodless. We continued this dissection using cautery and eventually exposed the very distended infundibulum and neck of the gallbladder. There was extremely large stone in the neck of the gallbladder. Dissection in this area was carried out but was very bloody. At 1 point, there was some bleeding from the cystic artery on the surface of the gallbladder which had to be clipped. It was later dissected out thoroughly and clipped and divided in the typical fashion. Dissection of the cystic duct was also very bloody and had dense adhesions around it. With careful dissection, the cystic duct was dissected out clearly. The cystic artery was thoroughly dissected. Gallbladder was dissected off the liver over its lower 3rd. Critical view was achieved. I then went ahead and securely clipped and divided the cystic artery. The cystic duct was then securely clipped and divided. We irrigated and suctioned the right upper quadrant intermittently due to accumulation of blood and tissue fluid. This kept the area clean. We then started the dissection of the gallbladder from the gallbladder fossa. Under traction, this slow dissection was performed. This was also bloody in several areas due to bleeding with the dissection. Cautery was used for hemostasis. The gallbladder was intrahepatic over its upper half. Careful dissection was required to avoid entry into the liver which was avoided. Eventually the entire gallbladder was freed from the liver. I placed the gallbladder as side and exposed the gallbladder fossa and right upper quadrant. Repeated irrigation and suctioning were carried out. Some additional cautery was carried out. Gallbladder fossa at this point looked quite dry. In Endo-Catch bag was then introduced and the gallbladder was placed within it. To remove the gallbladder, with its large stones a
[2024-04-13] MEDS: fentaNYL CITRATE INJ (*CRX) 100 MCG/2 ML VIAL 25 MCG IV PUSH ×2 (10:45→10:48)
[2024-04-13] MEDS: busPIRone HCL 10 MG TABLET 30 MG PO (12:04)
[2024-04-13] MEDS: clonazePAM (*CRX) 0.5 MG TABLET PO ×2 (12:05→20:24)
[2024-04-13] MEDS: oxyCODONE/ACETAMINOPHEN (*CRX) 10-325 MG TABLET 1 TAB PO (12:39)
[2024-04-13] MEDS: IBUPROFEN IV 800 MG/200 ML 800 MG/200 ML BAG 400 MG IVPB ×2 (14:07→20:24)
[2024-04-14] MEDS: PIPERACILLN/TAZ 3.375GM/NS50ML 3.375 GM/50 ML BAG IVPB ×4 (00:06→17:32)
[2024-04-14 00:29] VITALS: BP 100/58; PULSE 60; RESP 14; TEMP 36.4; O2SAT 99
[2024-04-14] MEDS: MORPHINE SULFATE (*CRX) 2 MG/ML INJ IV PUSH ×2 (01:11→06:57)
[2024-04-14 05:38] LABS: Hematocrit 31.9 % (37.0-47.0); Hemoglobin 10.1 g/dL (12.0-15.0); Mean Corpuscular HGB Conc 31.7 g/dl (32-36); Mean Corpuscular Hemoglobin 27.2 pg (26-34); Platelet Count Result 217 k/mm3 (150-375); Red Blood Count 3.71 M/mm3 (4.2-5.4); Red Cell Distribution Width 14.1 % (11.5-14.5); White Blood Count 9.9 K/mm3 (4.5-10.0)
[2024-04-14 05:52] LABS: Alanine Aminotransferase 26 U/L (6-35); Albumin Level 3.8 g/dL (3.5-5.1); Alkaline Phosphatase 43 U/L (38-126); Anion Gap 7 mmol/L (4-12); Aspartate Amino Transferase 30 U/L (14-36); Bilirubin,Total 0.2 mg/dL (0.2-1.3); Blood Urea Nitrogen 7 mg/dL (7-17); Calcium 8.4 mg/dL (8.4-10.2); Carbon Dioxide 26 mmol/L (22-30); Chloride 103 mmol/L (98-107); Estimated CRCL calculation 114 ml/min; Estimated Glomerular Filt Rate > 60; Glucose 92 mg/dL (65-110); Potassium 3.7 mmol/L (3.4-5.0); Sodium 136 mmol/L (137-145)
[2024-04-14 06:55] VITALS: BP 147/84; PULSE 71; RESP 14; TEMP 36.7; O2SAT 98
[2024-04-14 08:23] VITALS: PULSE 70
[2024-04-14] MEDS: PROPRANOLOL HCL 10 MG TABLET PO ×2 (08:23→21:21)
[2024-04-14] MEDS: ENOXAPARIN 40 MG/0.4 ML SYRINGE SUB-Q (08:23)
[2024-04-14] MEDS: busPIRone HCL 10 MG TABLET 30 MG PO (08:23)
[2024-04-14] MEDS: clonazePAM (*CRX) 0.5 MG TABLET PO ×2 (08:24→21:21)
[2024-04-14] MEDS: IBUPROFEN IV 800 MG/200 ML 800 MG/200 ML BAG 400 MG IVPB ×2 (08:28→17:03)
[2024-04-14 09:09] VITALS: BP 150/76; PULSE 51; RESP 14; TEMP 36.4; O2SAT 100
[2024-04-14 14:00] VITALS: BP 129/72; PULSE 72; RESP 14; TEMP 36.6; O2SAT 99
--- NOTE | 2024-04-14 14:05 | PM.PNGS ---
Progress Note: A&P Assessment and Plan (1) Acute calculous cholecystitis: Code(s): K80.00 - Calculus of gallbladder with acute cholecystitis without obstruction Status: Acute Assessment and Plan: Patient had severe cholecystitis and is postop day 1 following laparoscopic cholecystectomy. She is complaining of a lot of pain at her epigastric incision, which is not surprising as this is the largest incision where the gallbladder was extracted. Will start her on scheduled IV Ibuprofen to hopefully help with pain control. Will advance to a low fat diet. Encouraged getting up to the chair and ambulating in the halls. Continue IV antibiotics. Will repeat labs and exam again tomorrow. Plan I have discussed the patient's case and plan of care with Dr. Ragsdale. Subjective Subjective Date/Time Seen: 04/14/24 14:05 Post Op day: 1 (laparoscopic cholecystectomy) Interval history: Patient complaining of pain at her epigastric incision. She reports having a rough time sleeping last night due to the pain. She felt that there was no pain relief with the 10 mg Percocet she tried once yesterday. She required IV Morphine once overnight and again this morning. She is tolerating a low fat diet. Exam Const: General: comfortable and no acute distress Orientation/consciousness: patient oriented x3 GI: Inspection: non-distended and incision (incisions dry and intact) GI Palp: Yes Soft to palpation and Yes Tenderness to palpation present (GI) (tenderness near epigastric incision) Auscultation: normal bowel sounds Neuro: General: moves all extremities and no focal motor deficits Psych: Mental Status: mental status grossly normal Insight: Good insight present (Psych) Objective Data Vital Signs Vital Signs: Vital Signs - 24 hr 04/13/24 20:30 04/13/24 20:32 04/13/24 20:30 Temperature 97.0 F L 97.0 F L Pulse Rate 71 71 71 Respiratory Rate 18 18 Blood Pressure 142/75 H 142/75 H Pulse Oximetry 98 98 Oxygen Delivery 04/13/24 20:20 04/14/24 00:29 04/14/24 06:55 Temperature 97.6 F 98.1 F Pulse Rate 60 71 Respiratory Rate 14 14 Blood Pressure 100/58 L 147/84 H Pulse Oximetry 99 98 Oxygen Delivery Room Air 04/14/24 08:23 04/14/24 09:09 Temperature 97.5 F L Pulse Rate 70 51 L Respiratory Rate 14 Blood Pressure 150/76 H Pulse Oximetry 100 Oxygen Delivery Intake/Output Intake/Output: Intake & Output 04/11/24 04/12/24 04/13/24 04/14/24 23:59 23:59 23:59 23:59 Intake Total 2250 3107.4 1130 Balance 2250 3107.4 1130 Meds/Results Medications: Active Medications Generic Name Dose Route Start Last Admin Trade Name Freq PRN Reason Stop Dose Admin Acetaminophen 500 mg 04/13/24 11:24 Acetaminophen 500 Mg Tablet PO Q6H PRN Pain Rated 1-3 Buspirone HCl 30 mg 04/12/24 11:25 04/14/24 08:23 Buspirone Hcl 10 Mg Tablet PO 30 mg DAILY RAINA Administration Clonazepam 0.5 mg 04/12/24 11:30 04/14/24 08:24 Clonazepam (*Crx) 0.5 Mg Tablet PO 0.5 mg Q12HR RAINA Administration Diphenhydramine HCl 25 mg 04/13/24 11:24 Diphenhydramine Hcl Inj 50 Mg/Ml Vial IV PUSH Q6H PRN Itching Enoxaparin Sodium 40 mg 04/14/24 09:00 04/14/24 08:23 Enoxaparin 40 Mg/0.4 Ml Syringe SUB-Q 40 mg DAILY RAINA Administration Piperacillin/Tazobactam/Dextrose 3.375 gm in 50 mls @ 100 mls/hr 04/12/24 11:00 04/14/24 11:18 Zosyn 3.375 Gm/Ns 50 Ml IVPB 100 mls/hr Q6HR RAINA Administration Ibuprofen 800 mg in 200 mls @ 400 mls/hr 04/13/24 11:24 04/14/24 08:28 Caldolor 800 Mg/200 Ml IVPB 400 mls/hr Q6H PRN Administration Breakthrough Pain Rated 1-3 or NPO Miscellaneous Information 0 each 04/12/24 00:01 Cariprazine (Vraylar) Is Nonformulary - Can Patient Use From Home? XX 05/12/24 00:00 CLARIFY RAINA Morphine Sulfate 2 mg 04/13/24 11:24 04/14/24 06:57 Morphine Sulfate (*Crx) 2 Mg/Ml Inj IV PUSH 2 mg Q2H PRN Administration
[2024-04-14] MEDS: oxyCODONE/ACETAMINOPHEN (*CRX) 10-325 MG TABLET 1 TAB PO (14:47)
--- NOTE | 2024-04-14 15:33 | PHAR ---
HOME MEDICATION: VRAYLAR (CARIPRAZINE) 1.5 MG CAPSULE, PER PATIENT/NURSE - BOTTLE BROUGHT IN IS OLD AND DOSE ON BOTTLE DOES NOT MATCH CURRENT DOSING, CURRENT DOSE IS: TAKE 2 CAPSULES (3 MG) BY MOUTH DAILY AT BEDTIME, VERIFIED IN PHARMACY 04/14/2024. Drug Name: Teresitalamax Ingredients: Cariprazine -- 1.5 MG Related Documents: [employer]UGDEX Evaluations - CARIPRAZINE Color: White Imprint: FL 1.5 Form: Oral Capsule --MICROMEDEX
--- NOTE | 2024-04-14 16:22 | PC.NURSE ---
Held 1500 IV ibuprofen due to patient taking 10mg Percocet around 1445. Patient stating I think I want to skip the ibuprofen because I can really feel the Percocet working and don't want to overdo it.
--- NOTE | 2024-04-14 17:46 | PC.NURSE ---
Spoke with Dr. Ragsdale about refused IV ibuprofen. Dr. Ragsdale convinced patient to take IV Ibuprofen for the 1500 dose.
[2024-04-14 20:25] VITALS: BP 143/73; PULSE 71; RESP 16; TEMP 36.7; O2SAT 98
[2024-04-14] MEDS: CARIPRAZINE 1.5 MG 3 EACH PO (21:22)
[2024-04-15 00:16] VITALS: BP 143/81; PULSE 60; RESP 14; TEMP 36.4; O2SAT 99
[2024-04-15] MEDS: IBUPROFEN IV 800 MG/200 ML 800 MG/200 ML BAG 400 MG IVPB ×2 (00:21→11:09)
[2024-04-15] MEDS: PIPERACILLN/TAZ 3.375GM/NS50ML 3.375 GM/50 ML BAG IVPB ×2 (00:21→05:46)
[2024-04-15] MEDS: MORPHINE SULFATE (*CRX) 2 MG/ML INJ IV PUSH (00:26)
[2024-04-15] MEDS: oxyCODONE/ACETAMINOPHEN (*CRX) 5-325 MG TABLET 1 TABLET PO ×2 (05:45→13:17)
[2024-04-15] MEDS: IBUPROFEN IV 800 MG/200 ML 800 MG/200 ML BAG 200 MG IVPB (05:47)
[2024-04-15 06:08] LABS: Hematocrit 32.3 % (37.0-47.0); Hemoglobin 10.2 g/dL (12.0-15.0); Mean Corpuscular HGB Conc 31.6 g/dl (32-36); Mean Corpuscular Hemoglobin 27.3 pg (26-34); Mean Corpuscular Volume 86.4 fl (80-100); Mean Platelet Volume 11.1 fl (7.4-10.4); Platelet Count Result 234 k/mm3 (150-375); Red Blood Count 3.74 M/mm3 (4.2-5.4); Red Cell Distribution Width 14.5 % (11.5-14.5); White Blood Count 7.1 K/mm3 (4.5-10.0)
[2024-04-15 06:25] LABS: Anion Gap 6 mmol/L (4-12); Blood Urea Nitrogen 7 mg/dL (7-17); Calcium 8.4 mg/dL (8.4-10.2); Carbon Dioxide 29 mmol/L (22-30); Chloride 102 mmol/L (98-107); Estimated CRCL calculation 99 ml/min; Estimated Glomerular Filt Rate > 60; Glucose 95 mg/dL (65-110); Potassium 3.7 mmol/L (3.4-5.0); Sodium 137 mmol/L (137-145)
[2024-04-15 06:28] VITALS: BP 149/80; PULSE 61; RESP 16; TEMP 36.6; O2SAT 100
[2024-04-15 08:23] VITALS: PULSE 60
[2024-04-15] MEDS: PROPRANOLOL HCL 10 MG TABLET PO (08:23)
[2024-04-15] MEDS: clonazePAM (*CRX) 0.5 MG TABLET PO (08:23)
[2024-04-15] MEDS: ENOXAPARIN 40 MG/0.4 ML SYRINGE SUB-Q (08:23)
[2024-04-15] MEDS: busPIRone HCL 10 MG TABLET 30 MG PO (08:23)
[2024-04-15] MEDS: AMOXICILLIN/CLAVULANATE K 875-125 MG TAB 1 TABLET PO (11:08)
[2024-04-15 14:00] VITALS: BP 150/88; PULSE 66; RESP 16; TEMP 36.3; O2SAT 99
--- NOTE | 2024-04-15 14:59 | PM.DS ---
DS: Admitting Diagnosis Discharge Date 04/15/2024 Admitting Diagnosis Acute calculous cholecystitis DS: Discharge Diagnosis Discharge Diagnosis (1) Acute calculous cholecystitis: Code(s): K80.00 - Calculus of gallbladder with acute cholecystitis without obstruction Status: Acute DS: Summary Hospital Course Reason for hospitalization: This is a 43-year-old woman who presented to the ED x2 for right upper quadrant abdominal pain for 2 weeks. Her first visit to the ED, symptoms improved in the ED and workup showed CT evidence of cholelithiasis and possible cholecystitis. She was discharged home, but pain quickly returned and she came back into the ED on 04/12/2024. Workup showed evidence of acute cholecystitis with a gallstone in the neck of the gallbladder. She was admitted in this setting for treatment and surgical evaluation Hospital Course: The patient was started on IV antibiotics. She underwent laparoscopic cholecystectomy on 04/13/[address] Ragsdale. Her diet was advanced postoperatively to a low-fat diet. Due to the size of her gallbladder and gallstones, her epigastric incision was lengthened and this is where she was having most of her postoperative pain. Postop day 1, she was started on scheduled IV ibuprofen to help with pain control. She was also taking p.r.n. analgesics to help pain control. By postop day 2, her postoperative pain was much more controlled. She was tolerating a diet. She was transition to oral antibiotics. Dr. Ragsdale recommends discharging on another 5 days of Augmentin. She is stable for discharge today with follow-up in [address] Ragsdale. Time spent discussing smoking cessation with patient: 3 to 10 minutes Status at Discharge Functional status at discharge: independent ambulation Overall status at discharge: patient is progressing back to baseline Time Spent with Patient Time attestation: Total time spent providing and/or coordinating discharge services: Time spent: Less than 30 minutes Exam Const: General: comfortable and no acute distress GI: Inspection: non-distended and incision (incisions dry and intact) GI Palp: Yes Soft to palpation, Yes Tenderness to palpation present (GI) (incisional) and No Guarding due to palpation present (GI) Auscultation: normal bowel sounds Neuro: General: moves all extremities and no focal motor deficits Extrem: General: no calf tenderness and no edema Psych: Mental Status: mental status grossly normal Insight: Good insight present (Psych) DS: Data Data Completed and Pending Completed studies during hospitalization: Pending at discharge 04/13/24 09:32 Pathology results: Gallbladder, cholecystectomy: - Hemorrhagic chronic cholecystitis with cholelithiasis and erosion of surface mucosa - Extensive scarring and fibrosis of surrounding tissues. - Benign reactive lymph node Labs on day of discharge: Labs from last 24 hours 04/15/24 05:47 WBC 7.1 RBC 3.74 L Hgb 10.2 L Hct 32.3 L MCV 86.4 MCH 27.3 MCHC 31.6 L RDW 14.5 Plt Count 234 MPV 11.1 H Sodium 137 Potassium 3.7 Chloride 102 Carbon Dioxide 29 Anion Gap 6 BUN 7 Creatinine 0.70 Estim Creat Clear Calc 99 Estimated GFR > 60 Glucose 95 Calcium 8.4 Procedures/Treatments: Procedures Operation Date: 04/13/24 08:30 Actual Procedure Side Surgeon p Laparoscopic Cholecystectomy Esequiel Ragsdale MD Imaging Radiologist's impression: ITS Impressions Abdomen/Pelvis CT 04/12/24 06:01 Impression: Findings compatible with acute cholecystitis and associated cholelithiasis. Appearance is similar to prior exam. Indeterminate 9 mm left renal mass. Follow-up pre and postcontrast MR advised to assess for solid enhancing lesion. Discharge Plan Discharge Attending physician on discharge: Esequiel Ragsdale Discharging Clinician: Elsi Walker Anticipated Discharge Date/Time: 04/15/24 15:03 Patient Disposition:
== END 2024-04-15 15:23 | disposition home or self-care (01) | DRG 419 ==
LOC: ANHED 04:22 → ANH2MED 04:26
PROVIDERS: Admitting Provider Surgery; Emergency Provider Student in an Organized Health Care Education/Training Program; PCP Family Medicine; Visit Provider Nurse Practitioner Family
PROC: 0FT44ZZ Resection of Gallbladder, Percutaneous Endoscopic Approach (ICD-10-PCS; CPT 47562; principal; 2024-04-13 08:30)
DX: K80.12 Calculus of gallbladder with acute and chronic cholecystitis without obstruction (principal); F41.9 Anxiety disorder, unspecified; F31.9 Bipolar disorder, unspecified; F17.210 Nicotine dependence, cigarettes, uncomplicated
CPT/HCPCS: 36415; 71260; 74177; 80048; 80053; 81001; 81025; 83605; 83690; 84484; 85025; 85027; 85610; 85730; 88304; 93005; 96361; 96374; 96375; 99284; 99285; A9270; J1100; J1170; J1171; J1650; J1741; J1885; J2003; J2250; J2270; J2405; J2470; J2543; J2704; J3010; J7030; J7120; Q9967

== ENCOUNTER 2024-12-21 09:57 | Outpatient (CLI) | payer OTHER, SELFPAY ==
--- NOTE | ~2024-12-21 | MM_ITS ---
EXAMINATION: MM screening bill BI w john HISTORY: Screening TECHNIQUE: Craniocaudal and mediolateral oblique 3-D tomosynthesis images were obtained and synthetic 2-D images were generated. CAD analysis was submitted and interpreted. COMPARISON: Comparison to multiple prior studies sequentially, with oldest reviewed study dated 04/13. BREAST PARENCHYMAL COMPOSITION: Not dense: There are scattered areas of fibroglandular density. FINDINGS: There is no evidence of suspicious mass, calcification, or architectural distortion to sugg est malignancy in either breast. There has been no suspicious interval change. IMPRESSION: 1. No mammographic evidence of malignancy. 2. Recommend routine screening mammography in one year. BI-RADS Category 1: Negative Reviewed, dictated and finalized at location B.
== END 2024-12-21 09:58 | disposition home or self-care (01) ==
LOC: MICIMG 09:58
PROVIDERS: PCP Family Medicine; Visit Provider Obstetrics & Gynecology Gynecology
DX: Z12.31 Encounter for screening mammogram for malignant neoplasm of breast (principal)
CPT/HCPCS: 77063; 77067

== ENCOUNTER 2025-04-29 07:28 | Outpatient (CLI) | payer OTHER, SELFPAY ==
--- OUTSIDE RECORDS SUMMARY | 2025-04-29 07:32 | XMS_ITS | Patient Health Record ---
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 Name Role Phone Devi Collins MD Primary Care Provider Bossman Tanner Unavailable [phone] Allergies No Known Allergies Reason For Referral No Information Medications Medication SIG (Take, Route, Frequency, Duration) Notes Start Date End Date Status SUMAtriptan Succinate 100 MG Tablet Oral 11/04/2023 Active Vraylar 3 mg Capsule 1 capsule Oral Once a day; Duration: 90 days 03/09/2025 Active busPIRone HCl 30 MG Tablet TAKE 1 TABLET BY MOUTH EVERY DAY FOR 90 DAYS; Duration: 90 Active Propranolol HCl 10 MG Tablet TAKE 1 TABLET BY MOUTH TWICE A DAY FOR 30 DAYS; Duration: 90 Active Propranolol HCl 20 MG Tablet 1 tablet Orally twice a day; Duration: 90 days 03/09/2025 Active clonazePAM 0.5 MG Tablet 1 tablet Oral Twice a day; Duration: 30 days 03/09/2025 Active buPROPion HCl ER (XL) 300 MG Tablet Extended Release 24 Hour 1 tablet every morning Oral Once a day; Duration: 90 days Not-Taking busPIRone HCl 15 MG Tablet 1 tablet Orally Twice a day; Duration: 90 days 03/09/2025 09/05/2025 Active MARIJUANA (CANNABIS) BUDS/LEAVES FOR SMOKING *Reorder from [facility] for eRx and Interaction Alerts* 11/04/2023 Active Social History Tobacco Use: Social History Observation Description Date Details (start date - stop date) Former Smoker NA - NA Sex Assigned At : Social History Observation Description Sex Assigned At Female Social History Miscellaneous: Social Info Question Answer Notes Advance Care Planning Are you your own decision-maker Yes Do you have Power of Baseball 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 No Tobacco Use: Social Info Question Answer Notes Tobacco Control (Standard) Tobacco use: Former smoker How long has it been since you last smoked? 1-5 years Additional Details Category Social Info Options Details Migrated Social History Migrated Social History Alcohol Intake: Occasional 09/30/2023,Tobacco Years: Former smoker 09/30/2023 Problems Problem Type SNOMED Code ICD Code Onset Dates Problem Status W/U Status Risk Notes Problem Mixed bipolar I disorder (60544862) Bipolar disorder, current episode mixed, unspecified (F31.60) Active confirmed Problem Mild recurrent major depression (85632595) Major depressive disorder, recurrent, mild (F33.0) Active confirmed Problem Generalized anxiety disorder (77879946) Generalized anxiety disorder (F41.1) Active confirmed Problem Panic disorder (108133803) Panic disorder [episodic paroxysmal anxiety] without agoraphobia (F41.0) Active confirmed Problem Posttraumatic stress disorder (95776350) Chronic post-traumatic stress disorder (PTSD) (F43.12) Active confirmed Vital Signs Heart Rate 61 /min 11/12/2024 Height-cm 162.56 cm 11/12/2024 Blood pressure diastolic 85 mm Hg 11/12/2024 Weight-kg 95.26 kg 11/12/2024 Height 64.00 in 11/12/2024 Blood pressure systolic 123 mm Hg 11/12/2024 Weight 210 lbs 11/12/2024 BMI 36.04 kg/m2 11/12/2024 Encounters Encounter Location Date Provider Diagnosis [facility] [address] [place] [address] [address] 07/27/2024 Bossman Quinn Generalized anxiety disorder F41.1 ; Panic disorder [episodic paroxysmal anxiety] without agoraphobia F41.0 ; Bipolar disorder, current episode mixed, unspecified F31.60 and Chronic post-traumatic stress disorder (PTSD) F43.12 [facility] [place] [address] [place] [address] 09/23/2024 Bossman Quinn Encounter for screen ing for depression Z13.31 ; Encounter for screening for cardiovascular disorders Z13.6 ; Dietary counseling and surveillance Z71.3 ; Generalized anxiety disorder F41.1 ; Panic disorder [episodic paroxysmal anxiety] without agoraphobia F41.0 ; Bipolar disorder, current episode mixed, unspecified F31.60 and Chronic post-traumatic stress disorder (PTSD) F43.12 [facility] [place] [address] [place] [address] 11/12/2024 Bossman Quinn Encounter for screen ing for cardiovascular disorders Z13.6 ; Negative depression screening Z13.31 ; Encounter for screening for depression Z13.31 ; Dietary counseling and surveillance Z71.3 ; Generalized anxiety disorder F41.1 ; Panic disorder [episodic paroxysmal anxiety] without agoraphobia F41.0 ; Bipolar disorder, current episode mixed, unspecified F31.60 and Chronic post-traumatic stress disorder (PTSD) F43.12 [facility] [place] [address] [address] 03/09/2025 Bossman Quinn Generalized anxiety disorder F41.1 ; Panic disorder [episodic paroxysmal anxiety] without agoraphobia F41.0 ; Bipolar disorder, current episode mixed, unspecified F31.60 and Chronic post-traumatic stress disorder (PTSD) F43.12 [facility] [place] [address] [address] 10/19/2024 Bossman Quinn [facility] [place] [address] [address] 02/11/2025 Bossman Quinn Assessments Encounter Date Diagnosis (ICD Code) Assessment Notes Treatment Notes Treatment Clinical Notes Section Notes 07/27/2024 Generalized anxiety disorder (ICD-10 - F41.1) 09/23/2024 Encounter for screening for depression (ICD-10 - Z13.31) 11/12/2024 Encounter for screening for cardiovascular disorders (ICD-10 - Z13.6) 03/09/2025 Generalized anxiety disorder (ICD-10 - F41.1) 03/09/2025 Panic disorder [episodic paroxysmal anxiety] without agoraphobia (ICD-10 - F41.0) 11/12/2024 Negative depression screening (ICD-10 - Z13.31) 09/23/2024 Encounter for screening for cardiovascular disorders (ICD-10 - Z13.6) 07/27/2024 Panic disorder [episodic paroxysmal anxiety] without agoraphobia (ICD-10 - F41.0) 07/27/2024 Bipolar disorder, current episode mixed, unspecified (ICD-10 - F31.60) 09/23/2024 Dietary counseling and surveillance (ICD-10 - Z71.3) 03/09/2025 Bipolar disorder, current episode mixed, unspecified (ICD-10 - F31.60) 11/12/2024 Encounter for screening for depression (ICD-10 - Z13.31) 03/09/2025 Chronic post-traumatic stress disorder (PTSD) (ICD-10 - F43.12) 11/12/2024 Dietary counseling and surveillance (ICD-10 - Z71.3) 09/23/2024 Generalized anxiety disorder (ICD-10 - F41.1) 07/27/2024 Chronic post-traumatic stress disorder (PTSD) (ICD-10 - F43.12) 09/23/2024 Panic disorder [episodic paroxysmal anxiety] without agoraphobia (ICD-10 - F41.0) 11/12/2024 Generalized anxiety disorder (ICD-10 - F41.1) 11/12/2024 Panic disorder [episodic paroxysmal anxiety] without agoraphobia (ICD-10 - F41.0) 09/23/2024 Bipolar disorder, current episode mixed, unspecified (ICD-10 - F31.60) 09/23/2024 Chronic post-traumatic stress disorder (PTSD) (ICD-10 - F43.12) 11/12/2024 Bipolar disorder, current episode mixed, unspecified (ICD-10 - F31.60) 11/12/2024 Chronic post-traumatic stress disorder (PTSD) (ICD-10 - F43.12) 07/27/2024 Other 1. Medication adherence issue: - Patient reports difficulty in consistently taking Vraylar, leading to missed doses and mood instability. Plan: - Encourage the patient to continue using a pill tool planner and setting alarms to improve medication adherence. - Reinforce the importance of taking medication consistently for optimal mental health and stability. 2. Mood stabilization: - Patient is currently on Vraylar for mood stabilization and reports it as the best regimen when taken consistently. Plan: - Continue Vraylar and monitor for any changes in mood or side effects. 3. Anxiety management: - Patient is currently on clonazepam 0.5 mg twice a day and propranolol 10 mg twice a day for anxiety. Plan: - Continue current medications and monitor for effectiveness and side effects. 4. Blood pressure concerns: - Patient's blood pressure was 138/81 during the visit, and she expressed concerns about whether she should see her primary care physician. Plan: - Advise the patient to monitor her blood pressure regularly and follow up with her primary care physician if readings remain elevated. - Educate the patient on proper blood pressure measurement techniques, such as sitting quietly for five minutes before taking a reading. 5. Medication refills: Plan: - Refill Vraylar, clonazepam, and propranolol prescriptions for two months at [place], [place]. - Schedule a follow-up appointment in two months to assess the patient's progress and make any necessary adjustments to her treatment plan. 6. Patient education and support: Plan: - Continue to encourage the patient to discuss her feelings and concerns with her counselor, Vira. - Remind the patient of the importance of medication adherence and the potential consequences of stopping treatment abruptly. - Offer ongoing support and availability for any questions or concerns the patient may have. 09/23/2024 Other 1. Generalized Anxiety Disorder: - Patient reports increased anxiety symptoms over the past couple of weeks. - Symptoms include intrusive thoughts, rumination, physical symptoms (heart racing, headaches), and sleep disturbances. - Anxiety triggered by work-related stress, particularly concerns about job security. - Patient engages in avoidance behavior by sleeping excessively to cope with anxiety. - Current medications: clonazepam, propranolol (10 mg BID), and buspirone (30 mg daily). - Patient is compliant with medications and sees a therapist regularly. Plan: - Increase propranolol to 20 mg PO BID for anxiety symptoms and potential headache relief. - Adjust buspirone dosing to 15 mg PO BID for more consistent coverage throughout the day. - Continue current dose of clonazepam as needed for acute anxiety. - Encourage continued engagement with therapist to address coping strategies for managing uncertainty and intrusive thoughts. Follow-up: - Schedule a follow-up appointment in one month to assess response to medication adjustments. 11/12/2024 Other Bonnie Gay presents with a history of anxiety and bipolar disorder, reporting improvement in anxiety symptoms and stable mood. Anxiety Disorder Assessment: Patient reports significant improvement in anxiety symptoms, particularly after work. She states that anxious thoughts have pretty much stopped or can be controlled if they start. This indicates a positive response to the current medication regimen. The patient is currently taking propranolol 20 mg twice daily, buspirone 15 mg twice daily, and clonazepam 0.5 mg twice daily as needed. She reports good control of anxiety with these medications and has not required extra doses of clonazepam. Plan: - Continue propranolol 20 mg PO twice daily - Continue buspirone 15 mg PO twice daily - Continue clonazepam 0.5 mg PO twice daily as needed - Refill medications for a 90-day supply - Follow up in 3 months Bipolar Disorder Assessment: Patient's bipolar disorder appears to be well-managed on the current medication regimen. She denies experiencing any significant mood swings or energy fluctuations. The patient is currently taking Vraylar 3 mg, which seems to be effective in maintaining mood stability. Plan: - Continue Vraylar 3 mg (patient reports having an adequate supply) - Follow up in 3 months Sleep Disturbance Assessment: Patient reports waking up two to three times during the night but is usually able to fall back asleep. This suggests mild sleep disturbance, which may be related to her anxiety or bipolar disorder. Plan: - Continue current medication regimen and monitor sleep quality - Follow up in 3 months the note is transcribed using speech recognition software. It is a reflection of a visit with the patient. It might have some inaccuracy, including medication names and transcribing errors, though efforts have been made to correct them. 03/09/2025 Kenia Gay, a patient with bipolar disorder, presents with decreased motivation and anhedonia, primarily affecting her after work hours. Bipolar Disorder Assessment: Patient reports feeling really good overall, with anxiety currently well-managed. She is able to maintain motivation at work but experiences a significant decrease in motivation and desire to engage in activities once at home. This pattern developed during summer break when she spent considerable time alone and became bored. The lack of motivation does not typically extend to enjoyable activities, though there have been occasional exceptions. Current medication regimen includes Virelaira 3 mg daily for bipolar disorder management. Plan: - Continue Virelaira 3 mg daily Anxiety Assessment: Patient reports that anxiety is usually her biggest issue but is currently well-controlled. Her therapist has noted that she appears real chill about returning to school, which is atypical compared to previous years. Plan: - Continue clonazepam twice daily - Continue propranolol 20 mg twice daily - Continue bucephalate 15 mg twice daily Decreased Motivation Assessment: Patient reports a significant decrease in motivation, particularly after returning home from work. This pattern developed during summer break when she spent considerable time alone and became bored. The lack of motivation does not typically extend to enjoyable activities, though there have been occasional exceptions. This suggests a possible mild depressive episode or adjustment difficulties transitioning back to work routine. Plan: - Monitor for worsening of symptoms or impact on daily functioning - Encourage engagement in pleasurable activities and maintaining social connections the note is transcribed using speech recognition software. It is a reflection of a visit with the patient. It might have some inaccuracy, including medication names and transcribing errors, though efforts have been made to correct them. Plan Of Treatment Next Appt Details Provider Name:Bossman forrester, 06/06/2025 04:00:00 PM, [address] [address], [place], [address], Insurance Providers Payer Name Payer Address Payer Phone Subscriber Number Group Number Insured Name Patient Relationship to Insured Coverage Start Date Coverage End Date [facility] [address] [place] [phone] [id number] BONNIE GAY Self - patient is the insured Medical (General) History Medical History History ICD Code Problems: Bipolar affective disorder, cu rrent episode mixed Generalized anxiety disorder Panic attack , Surgical History Surgery Date(Month/Year) Other 12/05/2006 Tonsilectomy/adenoids 04/30/1987
[2025-04-29 09:04] LABS: Hematocrit 38.6 % (37.0-47.0); Hemoglobin 12.3 g/dL (12.0-15.0); Mean Corpuscular HGB Conc 31.9 g/dl (32-36); Mean Corpuscular Hemoglobin 29.0 pg (26-34); Mean Corpuscular Volume 91.0 fl (80-100); Platelet Count Result 213 k/mm3 (150-375); Red Blood Count 4.24 M/mm3 (4.2-5.4); White Blood Count 8.3 K/mm3 (4.5-10.0)
[2025-04-29 09:27] LABS: Hemoglobin A1C 5.0 % (<5.7)
[2025-04-29 09:34] LABS: Alanine Aminotransferase 24 U/L (6-35); Albumin Level 4.2 g/dL (3.5-5.1); Alkaline Phosphatase 65 U/L (38-126); Anion Gap 8 mmol/L (4-12); Aspartate Amino Transferase 32 U/L (14-36); Bilirubin,Total 0.4 mg/dL (0.2-1.3); Blood Urea Nitrogen 10 mg/dL (7-17); Calcium 8.6 mg/dL (8.4-10.2); Carbon Dioxide 25 mmol/L (22-30); Chloride 103 mmol/L (98-107); Cholesterol 139 mg/dL (0-200); Estimated Glomerular Filt Rate > 60; Glucose 95 mg/dL (65-110); HDL Direct 30 mg/dL; Potassium 3.8 mmol/L (3.4-5.0); Sodium 136 mmol/L (137-145); Total Protein 7.0 g/dL (6.3-8.2); Triglycerides 158 mg/dL (<150)
[2025-04-29 09:45] LABS: Free T4 Free Thyroxine 1.25 ng/dL (0.78-2.19)
[2025-04-29 10:39] LABS: Thyroid Stimulating Hormone 0.771 uIU/mL (0.465-4.680)
[2025-04-29 11:04] LABS: Vitamin B12 > 1000.0 pg/mL (239-931)
== END 2025-04-29 07:29 | disposition home or self-care (01) ==
LOC: ANHLAB 07:30
PROVIDERS: PCP Family Medicine Adolescent Medicine
DX: Z01.419 Encounter for gynecological examination (general) (routine) without abnormal findings (principal)
CPT/HCPCS: 36415; 80053; 80061; 82306; 82607; 83036; 84439; 84443; 85027

== ENCOUNTER 2025-05-02 13:16 | Outpatient (CLI) | payer OTHER, SELFPAY ==
--- NOTE | ~2025-05-02 | MMUS_ITS ---
EXAMINATION: MM diagnostic bill RT w john, US breast RT limited INDICATION: 45-year old female; Presents for evaluation of palpable lump in the right breast felt by her. . COMPARISON: 12/21/2024 through 04/25/2021 TECHNIQUE: Digital breast tomosynthesis CC and MLO views of Right breast and tangential view of the palpable area in the Right breast were obtained with computer-aided detection to assist in interpretation of the study. A radiopaque skin marker was placed over the area of RIGHT breast palpable lump area. MAMMOGRAM FINDINGS: There are scattered areas of fibroglandular density. There are no suspicious masses, calcifications, architectural distortion or any other abnormality in either breast. Biopsy clip in the right breast is not in the palpable lump area. No suspicious mammographic abnormality correlates to the radiopaque skin marker. RIGHT BREAST ULTRASOUND FINDINGS: Targeted sonographic evaluation of the palpable area was completed. There is no sonographic abnormality that correlates to the area of palpable lump. IMPRESSION: No mammographic or sonographic finding correlates to the palpable lump in the RIGHT breast. Recommendations: Clinical management of patient's palpable lump. Follow-up as clinically warranted. Annual screening bilateral mammography in 12 months BI-RADS 1, NEGATIVE Reviewed, dictated and finalized at location B. IMPRESSION: No mammographic or sonographic finding correlates to the palpable lump in the R IGHT breast. Recommendations: Clinical management of patient's palpable lump. Follow-up as clinically warrant ed. Annual screening bilateral mammography in 12 months BI-RADS 1, NEGATIVE
--- OUTSIDE RECORDS SUMMARY | 2025-05-02 15:03 | XMS_ITS | Clinical Summary ---
Author Organization [facility] Address [address] [place] [address] Phone Care Team Providers Care Waiter And Cashier Name Role Phone Unavailable Primary Care Provider Unavailabl e Allergies No known active allergies Medications VIT/FE FUMARATE/FA (DIANN ORAL) Take 1 Tab by mouth daily. Active ERGOCALCIFEROL, VITAMIN D2, (VITAMIN D ORAL) Take 1 Tab by mouth daily. Active FEXOFENADINE HCL (MATTY ORAL) Take 1 Tab by mouth daily. Active Family History Medical History Relation Name Comments Healthy Daughter Heart Disease Father Colon Cancer Maternal Grandfather Diabetes Maternal Grandfather Hypertension Maternal Grandfather Heart Disease Maternal Grandmother Healthy Mother Hemorrhage afte r childbirth Other Mother Diabetes Paternal Grandfather Hypertension Paternal Grandfather Healthy Paternal Grandmother Relation Name Status Comments Daughter Father Maternal Grandfather Maternal Grandmother Mother Paternal Grandfather Paternal Grandmother Social History Tobacco Use Types Packs/Day Years Used Date Smoking Tobacco: Never Smokeless Tobacco: Never Alcohol Use Standard Drinks/Week Comments No 0 (1 standard drink = 0.6 oz pur e alcohol) Comments Yes Sex and Gender Information Value Date Recorded Sex Assigned at Not on file 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
== END 2025-05-02 13:17 | disposition home or self-care (01) ==
PROVIDERS: PCP Family Medicine Adolescent Medicine
DX: N63.10 Unspecified lump in the right breast, unspecified quadrant (principal); N64.4 Mastodynia
CPT/HCPCS: 76642; 77061; 77065; G0279